=== PATIENT | female | born 1960 | race Two or more races ===

== ENCOUNTER 2024-12-12 14:20 | Inpatient (IN) | payer BC, SELFPAY ==
[2024-12-12] VITALS (9 sets, daily range): BP systolic 110–159; BP diastolic 71–98; PULSE 74–146; RESP 15–19; TEMP 36.1–36.9; O2SAT 95–100; BMI 27.5
--- NOTE | 2024-12-12 14:42 | EKG_ITS ---
[facility] Test Date: 2024-12-12 Pat Name: BRITTANI SMALLS Department: Room: - Gender: Female Practice Director: : [id number] Requested By: Keon Douglas Order Number: [id number] Reading MD: Keon Douglas Measurements Intervals [place] Rate: 119 P: IA: QRS: 11 QRSD: 76 T: 63 QT: 283 QTc: 398 Interpretive Statements ATRIAL FIBRILLATION WITH RAPID VENTRICULAR RESPONSE NONSPECIFIC T-WAVE ABNORMALITY ABNORMAL RHYTHM ECG No previous ECG available for comparison /store/S0/[id number].pdf
--- NOTE | 2024-12-12 14:48 | PC.LAC ---
Patient to er via ems from 's office with c/o syncopal episodes x 2 at home, feeling weak, upper mid chest pain and afib rvr at dr's office, no h/o afib, patient denies chest pain at this time, however, patient states he comes and goes. Skin is warm dry and slightly pale, patient states she feels slightly dizzy at this time and has h/o anemia. Dr. Alvarado made aware of patients status, ekg in progress by SORAYA Newman, call light within reach.
--- NOTE | 2024-12-12 15:19 | XR_ITS ---
Examination: AP chest single view TECHNIQUE: Portable AP sitting chest single view Date and time: December 12, 2024 1537 hours INDICATIONS: Chest pain beginning 3:00 AM this morning FINDINGS: Normal heart size. Lungs are clear. Osseous structures are intact IMPRESSION: No active disease
[2024-12-12 15:40] LABS: Basophils % (Auto) 1 % (0-2.5); Eosinophils % (Auto) 0 % (0-10); Hematocrit 33.4 % (36.0-46.0); Hemoglobin 10.7 g/dL (12.0-16.0); Immature Granulocytes % (Auto) 1 % (0-0); Immature Granulocytes Auto 0.03 Thou/mm3 (0.00-0.00); Lymphocytes # (Auto) 1.1 Thou/mm3 (1.0-4.8); Lymphocytes % (Auto) 16 % (10-50); Mean Corpuscular Hemoglobin 24.3 pg (25.0-35.0); Mean Corpuscular Volume 76 fL (80-100); Monocytes # (Auto) 0.6 Thou/mm3 (0.0-0.8); Monocytes % (Auto) 9 % (0-12); Neutrophils # (Auto) 4.8 Thou/mm3 (1.8-7.7); Neutrophils % (Auto) 73 % (37-80); Nucleated Red Blood Cell % 0 /100 WBC (0); Platelet Count 283 Thou/mm3 (140-440); RDW Standard Deviation 45.9 fL (36.4-46.3); Red Blood Count 4.41 Miln/mm3 (4.00-5.20); White Blood Count 6.6 Thou/mm3 (3.6-11.0)
[2024-12-12 16:02] LABS: Alanine Aminotransferase 19 U/L (10-49); Albumin, Serum 4.2 gm/dL (3.4-4.8); Albumin/Globulin Ratio 1.6 (1.2-2.2); Alkaline Phosphatase 104 U/L (46-116); Anion Gap 11 (7-16); BUN/Creatinine Ratio 18 Ratio (12-20); Bilirubin,Total 0.6 mg/dL (0.3-1.2); Blood Urea Nitrogen 18 mg/dL (9-23); Calcium 9.4 mg/dL (8.3-10.6); Calcium (Corrected) 9.4 mg/dL (8.5-10.1); Carbon Dioxide 21.7 mMol/L (20.0-31.0); Chloride 111 mMol/L (98-107); Estimated Creatinine Clearance 48.1 mL/min (>60); Globulin 2.7 gm/dL (2.3-3.5); Glucose 119 mg/dL (74-106); Osmolality,Calculated 289 (275-295); Potassium 3.8 mMol/L (3.4-5.1); Sodium 144 mMol/L (136-145); Thyroid Stimulating Hormone 1.51 uIU/mL (0.55-4.78); Total Protein 6.9 gm/dL (5.7-8.2); Troponin I < 0.020 ng/mL (0.0-0.045); eGFR > 60 See Note
[2024-12-12] MEDS: ENOXAPARIN SOD INJ 60 MG/0.6 ML SYRINGE SC (16:35)
[2024-12-12] MEDS: DILTIAZEM INJ 5 MG/ML VIAL 5 ML 20 MG IV ×2 (16:35→21:37)
--- NOTE | 2024-12-12 17:12 | PD.EDCHEST ---
ED Chest Pain RME/HPI General Chief Complaint: Chest Pain Stated Complaint: CHEST PAIN Time Seen by Provider: 12/12/24 14:42 Arrival date/time: 12/12/24 14:20 Limitations: no limitations RME / HPI RME / HPI narrative: 64 year old female with a history of anemia requiring previous blood transfusions and a prior procedure for menorrhagia 20 years ago presents to the ED BIBA for evaluation of chest pain and a heart fluttering sensation that began intermittently one week ago. The patient reports that previous episodes of fluttering and chest discomfort were short and resolved on their own. However, today she was awakened at 3 AM with fluttering sensation and chest pain. While getting ready for work this morning, she notes that the chest pain became unrelenting, associated with shortness of breath, prompting ED visit. The patient denies any known cardiac history, including prior heart disease or arrhythmias. Denies fever, chills, cough, abdominal pain, nausea, vomiting, diarrhea, or urinary symptoms. Also denies consuming coffee in the last three days and reports no use of recreational drugs. Related Data Previous Rx's ?Medication ?Instructions ?Recorded diphenhydramine HCl 50 mg capsule 50 mg PO Q6H PRN itching #30 caps 01/05/21 famotidine 40 mg tablet (Pepcid) 40 mg PO BID #7 tabs 01/05/21 Allergies Allergy/AdvReac Type Severity Reaction Status Date / Time No Known Allergies Allergy Verified 01/05/21 19:12 Review of Systems Review of Systems Systems Reviewed: All systems reviewed, normal except as documented Past Medical History Past Medical History CARDIAC: Positive Hypertension; Negative Congestive Heart Failure RESPIRATORY: Negative Chronic Obstructive Pulmonary Disease (COPD) GENITOURINARY: Negative Renal Disease ENDOCRINE: Negative Diabetes Mellitus Type 1 or Diabetes Mellitus Type 2 OTHER HISTORY: Positive Blood Transfusions Surgical History SURGICAL: Positive Gastric Bypass Surgery and Section (x2) Social History SMOKING STATUS: Never smoker ED Exam General Limitations: Present no limitations General appearance: Present alert and in no apparent distress Head Head exam: Present atraumatic, normocephalic and normal inspection Eye Eye exam: Present normal appearance, PERRL and EOMI ENT ENT exam: Present normal exam, normal oropharynx and mucous membranes moist Neck Neck exam: Present normal inspection, full ROM and trachea midline Chest Chest inspection: Present normal inspection and symmetric chest wall rise Respiratory Respiratory exam: Present normal lung sounds bilaterally Cardiovascular Cardiovascular exam: Present irregular rhythm (irregularly irregular) and normal heart sounds Abdominal Exam Abdominal exam: Present soft and normal bowel sounds Extremities Exam Extremities exam: Present normal inspection and full ROM Back Exam Back exam: Present normal inspection and full ROM Neurological Exam Neurological exam: Present alert, oriented X3 and CN II-XII intact Psychiatric Psychiatric exam: Present normal affect and normal mood Skin Skin exam: Present warm, dry, intact and normal color Course Quality Measures none Orders Category Date Time Status COVID-19 Screening Questionnaire NOW Care 12/12/24 17:33 Active Compressor Mechanic Q2HR Care 12/12/24 14:41 Completed Continuous Pulse Oximetry ONCE Care 12/12/24 15:19 Completed Decision to Admit X1 Care 12/12/24 17:33 Completed EKG (ED ONLY) *Do not use* NOW Care 12/12/24 14:42 Completed Insert IV STAT Care 12/12/24 15:19 Completed Miscellaneous Nursing Order PRN Care 12/12/24 16:37 Active EKG (ED Only) Stat Exams 12/12/24 14:42 Draft XR chest 1V portable Stat Exams 12/12/24 15:19 Completed B-Type Natriuretic Peptide Stat Lab 12/12/24 15:00 Received CBC [CBC] Stat Lab 12/12/24 15:00 Completed CMP [Comprehensive Metabolic Panel] Stat Lab 12/12/24 15:00 Completed Partial Thromboplastin Time Stat Lab 12/12/24 16:48 Received Prothrombin Time with INR Stat Lab 12/12/24 16:48 Received Thyroid Stimulating Hormone Stat Lab 12/12/24 15:00 Completed Troponin I Stat Lab 12/12/24 15:00 Completed DILTIAZEM in D5W 125 MG Med 12/12/24 16:18 Discontinued 125 mg in 125 ml IV 5 mg/hr DILTIAZEM in D5W 125 MG Med 12/12/24 16:37 Active 125 mg in 125 ml IV 5 mg/hr Diltiazem Inj [Cardizem Inj] Med 12/12/24 15:20 Discontinued 20 mg IV X1 ONE Enoxaparin [Lovenox] Med 12/12/24 15:20 Discontinued 60 mg SC X1 ONE Oxygen Delivery NOW RT 12/12/24 15:19 Active Vital Signs Vital signs: Vital Signs Temperature 98.4 F 12/12/24 14:39 Pulse Rate 146 H 12/12/24 14:39 Respiratory Rate 15 12/12/24 14:39 Blood Pressure 127/78 12/12/24 14:39 Pulse Oximetry (%) 100 12/12/24 14:39 Oxygen Delivery Method Room Air 12/12/24 14:39 Pulse ox is 100% on room air which is adequate. Chest Pain MDM Narrative MDM Narrative:: Martha Herring am scribing for and in the presence of Dr. Alvarado. 1636: RN reports patients HR after 20mg IVP of Diltiazem, HR is 64-77 atrial fibrillation on telemetry. 1720: Patient HR 70's atrial fibrillation on telemetry. Patient data External records reviewed:: [facility] previous records (I reviewed ED visit on 01/05/2021 ) and EMS form Clinical information provided by:: patient and EMS Social determinants that could affect healthcare access:: none Patient has the following chronic illnesses:: Hx of anemia requiring blood transfusion How is presenting disease/condition affected by chronic disease/condition?: uneffected by Evaluation data The following diagnostics were reviewed and interpreted by me:: lab results, radiology exam(s) and EKG tracing(s) (EKG 12/12/2024 @ 14:46. Atrial fibrillation with RVR, rate 119, nonspecific T-wave changes, QRS 76ms, QT/QTc 283/353ms ) Lab and/or radiology exams considered but not ordered:: None Interpretation Summary: Ordering Physician: Keon Alvarado MD Date of Service: 12/12/24 Procedure(s): XR chest 1V portable Accession Number(s): [id number] cc: Keon Alvarado MD; Nehemias Salazar MD; Atul Quinones MD~ Examination: AP chest single view TECHNIQUE: Portable AP sitting chest single view Date and time: December 12, 2024 1537 hours INDICATIONS: Chest pain beginning 3:00 AM this morning FINDINGS: Normal heart size. Lungs are clear. Osseous structures are intact IMPRESSION: No active disease Dictated By: Atul Quinones MD Signed By: <Electronically signed by Atul Quinones MD in OV> 12/12/24 1601 Medications / Prescriptions Medications or Prescriptions considered but not ordered:: None Medication administrations:: Medication Administration History Diltiazem HCl (Diltiazem In D5w 125 Mg) 125 mg in 125 mls @ 5 mls/hr IV .Q24H NORM Stop: 01/11/25 16:36 Discontinued Medications Diltiazem HCl (Diltiazem Inj 5 Mg/Ml Vial 5 Ml) 20 mg IV X1 ONE Stop: 12/12/24 15:21 Last Admin: 12/12/24 16:35 Dose: 20 mg Documented By: ALLYSSA Enoxaparin Sodium (Enoxaparin Sod Inj 60 Mg/0.6 Ml Syringe) 60 mg SC X1 ONE Stop: 12/12/24 15:21 Last Admin: 12/12/24 16:35 Dose: 60 mg Documented By: KM Diltiazem HCl (Diltiazem In D5w 125 Mg) 125 mg in 125 mls @ 5 mls/hr IV .Q24H [facility]; Protocol Stop: 01/11/25 16:17 Last Admin: 12/12/24 16:39 Dose: Not Given Documented By: ALLYSSA Non-Admin Reason: Cancelled by Provider See above Consultations Consultation(s) initiated? (list below): Yes Consultation #1 (Physician, Specialty, Details): I spoke with residents working with Dr. Salcido. Discussed patients PMHx, HPI, ED course, exam findings, labs, and radiology results. The hospitalist agree to accept the patient for admission. Time: 17:25 Diagnosis Chest Pain Differential Diagnosis: atypical chest pain, st elevation myocardial infarction, costochondritis, chest pain and other (Atrial fibrillation ) Most likely diagnosis given after review of the tests above:: New onset AFib Admission Indicated Admission indicated?: indicated Admission Request Was there a request for admission?: Yes Admission Attestation Admission request attestation: Discussed case with [] from Hospitalist service regarding admission. Discussed patients ED course, exam findings, labs, and radiology results. The Hospitalist [agrees,declines] to accept the patient for admission. Disposition Plan Disposition Plan: Admit Critical Care Time Critical Care Time Critical Care Time: Yes Total Critical Care Time (min.): 60 Attestation: The high probability of sudden, clinically significant deterioration in the patient's condition required the highest level of my preparedness to intervene urgently. The services I provided to this patient were to treat and/or prevent clinically significant deterioration. Services included the following: chart data review, reviewing nursing notes and/or old charts, documentation time, computer systems consultant collaboration regarding findings and treatment options, medication orders and management, direct patient care, vital sign assessments and ordering, interpreting and reviewing diagnostic studies and lab tests. Aggregate critical care time includes only time during which I was engaged in work directly related to the patient's care, as described above, whether at bedside or elsewhere in the Emergency Department. It did not include time spent performing other reported procedures or the services of residents, students, nurses or physician assistants. Discharge Plan Plan Patient Disposition: Admit Acute Care w/in Hospital Prescriptions/Referrals Prescriptions/Med Rec: No Action diphenhydramine HCl 50 mg capsule 50 mg PO Q6H PRN (Reason: itching) Qty: 30 0RF famotidine [Pepcid] 40 mg tablet 40 mg PO BID Qty: 7 0RF Referrals: Nehemias Salazar MD [Primary Care Provider] - In 1 week Problem List Clinical Impression: Atrial fibrillation, new onset Patient/Caregiver Discharge Instructions Print Language: Swedish Stand Alone Forms: [employer] Info., Patient Portal Info Letter
--- NOTE | 2024-12-12 17:56 | PC.NURSE ---
Hospitalists at bedside evaluating patient for admission.
[2024-12-12 18:24] LABS: B-Type Natriuretic Peptide 299 pg/mL (0-100)
[2024-12-12 18:29] LABS: Partial Thromboplastin Time < 20.0 Seconds (22.0-36.0); Prothrombin Time 11.3 Seconds (9.0-12.2)
--- NOTE | 2024-12-12 18:33 | ESHP_ITS ---
<Statement entered by Shama Ellis MD - 12/12/24 21:47> The patient is a 64-year-old female with a medical history of hypertension and type 2 diabetes who presented with atypical chest pain. On presentation, her heart rate was found to be in the 140s, and an EKG revealed A-fib. Troponin first set was negative. The patient continued to report chest discomfort, night monitor was showing Afib , prompting the initiation of a diltiazem drip after receiving bolus doses. Anticoagulation therapy was also started. She was admitted for the management of new-onset paroxysmal A-fib and unstable angina. The plan is to initiate diltiazem 120 mg daily for rate control, in addition to a therapeutic dose of Lovenox. Given her [id number] score of 3, switching to Eliquis will be considered. Cardiology has been consulted and will provide further recommendations. Electrolytes will be closely monitored to remain within the acceptable range, and risk factors such as hypertension and hyperglycemia will be managed appropriately. A second set of troponin levels will be obtained, and cardiology will continue to follow the case. The patient will likely require a coronary angiogram, as she has been experiencing exertional chest pain for the past two months, which resolves with rest. However, she has not been using nitroglycerin for relief. For now, the current management will continue, with follow-up to assess further results. I discussed with and supervised the architecture intern physician who took care of this patient. I personally saw and examined the patient and discussed the assessment and plan with the entire medicine team, including my attending , I agree with the assessment and plan as documented below Shama Ellis M.D. PGY-2 Disclaimer: Despite multiple revisions, due to the dictation software being used, the document bellow may not be free of grammatical errors including phonetic/typographic errors. However, this does not deter from our commitment to providing health care in the patient's best interest in mind. Documentation for date of: 12/12/24 HPI History of Present Illness History of present illness: Charmaine Cintron is a 64-year-old female with a past medical history of hypertension and type 2 diabetes mellitus (A1c 7.2% in 2020) who presents with chief complaint of chest pressure. Patient states that symptoms started approximately one week ago as substernal chest pressure that would resolve on their own and did not think anything of it until symptoms progressed. States that symptoms would start suddenly with associated shortness of breath, pressure in her head and blurry vision. Symptoms not associated with activity, did not radiate, and no nausea or vomiting. This morning, pain was more intense than prior and states that she had to lie down in bed and afterwards she states she lost consciousness twice prompting her to visit a clinic for which she was then recommended to come to the ED. Prior to one week ago, she has never had these symptoms before but did endorse a sore throat two weeks ago but no cough, fever, or chills. Regarding family history, states that she has two sisters who were recently diagnosed with atrial fibrillation and father had an CA in his 70s and has since . Denies orthopnea, PND, or lower extremity edema. Of note, she states she takes a total of 12 ibuprofen daily for the last 15 years for what she states as fatigue. Denies bloody bowel movements or abdominal pain. In the ED, initial HR noted to be 146 and EKG showed a-fib with RVR, with HR of [address] changes or T wave abnormalities noted. Other vital signs stable. CBC unremarkable other than previously noted microcytic anemia (hgb 10.7, MCV 76). Chem panel also largely unremarkable (K 3.8, trop negative, BNP 300). EKG was noted above and CXR unremarkable. She was given enoxaparin x1 and diltiazem 20 mg x1 as well and heart rate upon evaluation was in the 80s. PMHx: hypertension, T2DM Medications: lisinopril 10 mg daily, ibuprofen 200 mg x12 per day FHx: as noted above SHx: denies cigarettes, alcohol, illitic drug use PSHx: two C-sections Review of Systems Review of Systems Systems Reviewed: All systems reviewed, normal except as documented Exam Vital Signs Temp Pulse Resp BP Pulse Ox O2 Del Method 98.4 F 83 18 110/71 100 Room Air 12/12/24 14:39 12/12/24 18:01 12/12/24 18:01 12/12/24 18:01 12/12/24 18:01 12/12/24 18:01 Narrative Exam General: AOx3, no acute distress, able to speak full sentences HEENT: NC/AT, mucous membranes moist, bilateral sclera anicteric Cardiovascular: regular rate and rhythm, S1/S2 present, no murmurs appreciated Pulmonary: clear to auscultation bilaterally, no rales/rhonchi/wheezes Abdominal: soft, non-tender, non-distended, no rebound/guarding, normal bowel sounds present Musculoskeletal: normal ROM, no peripheral edema Skin: warm and dry, intact, no rashes Neuro: CN II-XII intact, no focal deficits Results: Labs 12/13/24 05:52 12/13/24 05:52 Labs: Short CBC 12/12/24 Range/Units 15:00 WBC 6.6 (3.6-11.0) Thou/mm3 Hgb 10.7 L (12.0-16.0) g/dL Hct 33.4 L (36.0-46.0) % Plt Count 283 (140-440) Thou/mm3 BMP 12/12/24 15:00 Sodium 144 Potassium 3.8 Chloride 111 H Carbon Dioxide 21.7 BUN 18 Creatinine 1.0 Glucose 119 H Calcium 9.4 Cardiac Enzymes 12/12/24 Range/Units 15:00 Troponin I < 0.020 (0.0-0.045) ng/mL Liver Function 12/12/24 Range/Units 15:00 Total Bilirubin 0.6 (0.3-1.2) mg/dL ALT 19 (10-49) U/L Alkaline Phosphatase 104 (46-116) U/L Albumin 4.2 (3.4-4.8) gm/dL Quality Measures Quality Measures none Medications Home Medications and Allergies Home Medications ?Medication ?Instructions ?Recorded ?Confirmed ?Type lisinopril 10 mg tablet 10 mg PO DAILY 12/12/2412/03 History ibuprofen 200 mg capsule 400 mg PO Q4H PRN pain 12/1312/13/24 History Allergies Allergy/AdvReac Type Severity Reaction Status Date / Time No Known Allergies Allergy Verified 01/05/21 19:12 Visit Medications Acetaminophen (Acetaminophen 325 Mg Tablet) 650 mg PO Q6H PRN PRN Reason: PAIN OR FEVER > 100.4 Stop: 01/11/25 18:19 Dextrose (Dextrose 50%-Water Inj 50 Ml Syringe) 25 ml IV Q15MIN PRN PRN Reason: BG 50-70 responsive npo pt Stop: 01/11/25 18:22 Dextrose (Dextrose 50%-Water Inj 50 Ml Syringe) 50 ml IV Q15MIN PRN PRN Reason: BG <50 OR BG <70 & pt unresponsive Stop: 01/11/25 18:22 Diltiazem HCl (Diltiazem Cd 120 Mg Capcr) 120 mg PO QDAY NORM Stop: 01/12/25 08:59 Enoxaparin Sodium (Enoxaparin Sod Inj 100 Mg/Ml Syringe) 64 mg SC BID NORM Stop: 12/26/24 20:59 Glucagon (Glucagon Inj 1 Mg Vial) 1 mg IM Q15MIN PRN PRN Reason: BG <70, and no IV access Diltiazem HCl (Diltiazem In D5w 125 Mg) 125 mg in 125 mls @ 5 mls/hr IV .Q24H NORM Stop: 01/11/25 16:36 Insulin Human Lispro (Insulin Lispro (Admelog) 1 Unit/0.01 Ml Unit) 0 unit SC AC [facility]; Protocol Stop: 01/12/25 07:29 Lisinopril (Lisinopril 2.5 Mg Tablet) 10 mg PO DAILY [facility] Stop: 01/12/25 08:59 Ondansetron HCl (Ondansetron Inj 2 Mg/Ml Inj 2 Ml) 4 mg IVP Q6H PRN; Protocol PRN Reason: NAUSEA OR VOMITING Stop: 01/11/25 18:19 Discontinued Medications Diltiazem HCl (Diltiazem Inj 5 Mg/Ml Vial 5 Ml) 20 mg IV X1 ONE Stop: 12/12/24 15:21 Last Admin: 12/12/24 16:35 Dose: 20 mg Enoxaparin Sodium (Enoxaparin Sod Inj 60 Mg/0.6 Ml Syringe) 60 mg SC X1 ONE Stop: 12/12/24 15:21 Last Admin: 12/12/24 16:35 Dose: 60 mg Enoxaparin Sodium (Enoxaparin Sod Inj 100 Mg/Ml Syringe) 63 mg SC BID [facility] Stop: 12/26/24 20:59 Diltiazem HCl (Diltiazem In D5w 125 Mg) 125 mg in 125 mls @ 5 mls/hr IV .Q24H [facility]; Protocol Stop: 01/11/25 16:17 Last Admin: 12/12/24 16:39 Dose: Not Given Assessment & Plan Plan Charmaine Cintron is a 64-year-old female with a past medical history of hypertension and type 2 diabetes mellitus who is admitted for management of new onset atrial fibrillation. #New onset atrial fibrillation #Syncopal episode Presents with chest pressure with associated shortness of breath and syncopal episode. Pressure did not radiate, was not associated with activity, and no N/V. Found to be in a-fib with RVR, initial troponins negative, and BNP slightly elevated at 300 but no orthopnea, PND, or lower extremity edema. Initial vitals showed HR 146 but hemodynamically stable and no supplemental oxygen required. TSH wnl, K 3.8, magnesium pending. EKG showed a-fib with RVR with HR 119. ? Cardiology following, appreciate recommendations ? Diltiazem 120 mg p.o. daily ? Enoxaparin 64 mg SC twice daily, will eventually transition to Eliquis ? Follow-up Mg ? Keep magnesium greater than 2 and K greater than 4 ? Follow-up echo #Hypertension ? Lisinopril 10 mg daily #History of type 2 diabetes mellitus Currently not on any medications or insulin. Last A1c in 2019 of 7.2% ? Follow-up A1c ? SSI ? Hypoglycemic protocol in place Hospital management: Disposition: new onset a-fib RVR, pending echo, cardio recs Fluids: not indicated Diet: carb consistent Lines: PIV DVT prophylaxis: enoxaparin BID GI prophylaxis: not indicated CODE STATUS: full code ----- Plan discussed with attending physician Dr. Loly Baxter MD PGY-1 Internal Medicine Attending Provider Attestation/Addendum I have examined the patient, reviewed labs and imaging findings, discussed the case with the resident(s), and reviewed entered orders. I agree with the plan of care as outlined in this note, with these additional summaries/recommendations: After examination of the patient and review of the clinical data, I feel that this patient needs admission to the hospital for further treatment and evaluation. Patient is a 64-year-old female with a medical history of acid reflux, primary hypertension, diabetes mellitus type 2, and dyslipidemia who presents to [facility] emergency department on 12/12/2024 with chief complaints of chest pain and shortness of breath. Patient seen at bedside. She reports minor improvement in shortness of breath and chest pain since arriving in the emergency department. In the ED patient was found to have new onset atrial fibrillation with rapid ventricular response. EKG showed rates into the 140s. She denies a previous history of arrhythmias and denies seeing a breeding manager in the past. Patient diagnosed with new onset atrial fibrillation with RVR. She received IV push of diltiazem 20 mg x 1 and therapeutic dose of Lovenox 60 mg subcutaneous x 1. Heart rate has significantly improved. Will start patient on oral diltiazem and continue therapeutic Lovenox. Order echocardiogram. Cardiology consulted, recommendations appreciated. Start insulin sliding scale with Accu-Cheks for diabetes mellitus type 2. Order A1c. Target blood sugar of 140-180 while hospitalized. Resume home lisinopril for hypertension. Patient and updated at bedside. All questions answered to satisfaction. Please see residents note for additional details and management. Dr. Loly MD
--- NOTE | 2024-12-12 20:17 | PC.NURSE ---
Report called to Mya LIRA
[2024-12-12 20:41] LABS: Glucose Estimated Average 114 mg/dL (80-131); Hemoglobin A1C 5.6 % Hgb (4.8-6.0); Magnesium 2.1 mg/dL (1.6-2.6)
[2024-12-12] MEDS: POTASSIUM CHLORIDE 20 mEq TABCR 40 MEQ PO (21:03)
--- NOTE | 2024-12-12 21:03 | ESCONSULT_ITS ---
HPI Data of Consult Requesting Physician: Genaro Salcido MD Admitting Provider: Genaro Salcido MD Attending Provider: Genaro Salcido MD Primary Care Provider: Nehemias Salazar MD Consult Narrative History of present illness: CC: chest pain & chest pressure Patient is a 64-year-old female with a past medical history of hypertension and microcytic anemia previously on iron supplements but since discontinued secondary to constipation. Patient presented to the emergency department via ambulance with a chief complaint of chest pain rapid heart rate coming from Dr Salazar's office. Patient stated that chest pain has been on and off for the past 2 weeks worsened with exertion. Describes chest pain as starting at sternal region and radiating. Denied upper jaw or hand radiation. Patient stated pain is 10 out of 10 overnight. Chest pain awoke patient out of sleep at approximately 3 AM patient described pain as aching and also heavy. Shortness of breath with chest pain/pressure. Patient denied palpitations. Patient denied nausea or vomiting. In PCPs office noted to be clammy and confused. Patient denied past medical history of cardiac surgery. Patient denied any sick contacts. Denied pyrexia. Drug use. Patient is compliant with PERRL. Patient admitted by primary team for Atrial fibrillation w/ RVR on 12/12/2024. ER Course: Vitals: BP 127/78, HR 146, RR 15, T 98.4, spO2 100 RA CMP: Na 144, K 3.8, Chloride 111, Bicarb 21.7, BUN 18, Cr 1.0 Glucose 119 WBC 6.6, Hgb 10.7, Hct 33.4, Plt 283, MCV 72 BNP 299, TSH 1.51 EKG: Afib Meds: Diltiazem 20 mg IV X 1, Enoxaparin 60 mg SC X 1 PMH: Hypertension Previous History of Diabetes Mellitus, lost 100 pounds after bypass; has then gained weight, now -50 lbs down since June 2024 after going on diet . Past Surgical History: Gastric Bypass 2000 2 C-sections Past Family History: Father-previous history of GA Mother-DM Home Medication: Lisinopril Social History: Denied Alcohol Use Denied Illicit Drug Use Never Smoker Works at [employer] and multiple jobs lives in [place] with Allergies: None 12/12/2024: Cardiology Consulted secondary to new onset of AFib cc:: cc: Genaro Salcido MD Review of Systems Review of Systems Narrative Review of Systems: General appearance: NO weight change, NO fatigue, NO weakness, NO fever, NO chills, NO night sweats, No cough Skin: NO rash, NO itching, NO sores, NO moles HEENT: NO Trauma, NO nausea, NO vomiting, NO visual changes, NO blurry vision, NO double vision, NO tinnitus, NO vertigo, NO ear discharge, NO rhinorrhea, NO stuffiness, NO sneezing, NO allergy, NO epistaxis. NO Hoarseness, NO sore throat, NO swollen neck. Cardiac: NO Palpitations, Yes CHEST pain, Yes Chest Pressue , YES dyspnea on exertion, NO orthopnea, NO paroxysmal nocturnal dyspnea, NO edema Respiratory: NO Shortness of Breath, NO Wheezing, NO Cough, NO Sputum, NO hemoptysis GI:NO appetite, NO nausea, NO vomiting, NO dysphagia, NO changes in bowel frequency, NO stool color, NO diarrhea, NO constipation, NO hemetemesis, NO hemorrhoids, NO melena, NO hematechezia, NO abdominal pain, NO jaundice Renal: NO frequency, NO hesitancy, NO urgency, NO hematuria, NO nocturia, NO incontinence MSK: NO muscle weakness, NO gout, NO arthritis, NO muscle stiffness Neuro: NO headaches, NO tremors, NO weakness, NO paralysis, NO seizures, NO loss of consciousness, NO numbness. Hem: NO anemia, NO easy bruising/bleeding, NO petechiae, NO purpura Endo: NO heat/cold intolerance, NO excessive sweating, NO polyuria, NO polydipsia, NO polyphagia, NO thyroid problems, Previously Pre-diabetes Pysch: NO mood, NO anxiety, NO depression Exam Vital Signs Temp Pulse Resp BP Pulse Ox O2 Del Method 98.2 F 82 18 118/83 97 Room Air 12/12/24 19:33 12/12/24 19:33 12/12/24 19:33 12/12/24 19:33 12/12/24 19:33 12/12/24 19:33 Narrative Exam General Appearance: Alert & Oriented X3, well-nourished female who is lying in bed in no acute distress HEENT: Skull symmetrical and atraumatic. Conjunctivae pale and moist. Pupils equal, round, reactive to light and accommodation (PERRL). External ear without lesion or discharge. Straight, nares patient, mucosa pink, no discharge. No thyroid nodule appreciated. No cervical lymphadenopathy. Cardio: Normal Rate and Irregular Rhythm with S1 and S2 heart sounds. No murmurs or extra heart sounds auscultated. No bruits on carotid auscultation. No peripheral edema or cyanosis. Lungs: Symmetric with good expansion. Chest and back non-tender. Breath sounds vesicular without crackles, wheezing or rhonchi Abdomen: Non-tender, Non-distended, Normal Reactive Bowel Sounds Neuro: Alert, cooperative, oriented to person, place, and time. Speech clear. CN grossly intact. Upper motor strength 5/5 and Lower motor strength 5/5. Sensation intact. Results Labs 12/13/24 05:52 12/13/24 05:52 Labs: Short CBC 12/12/24 Range/Units 15:00 WBC 6.6 (3.6-11.0) Thou/mm3 Hgb 10.7 L (12.0-16.0) g/dL Hct 33.4 L (36.0-46.0) % Plt Count 283 (140-440) Thou/mm3 BMP 12/12/24 15:00 Sodium 144 Potassium 3.8 Chloride 111 H Carbon Dioxide 21.7 BUN 18 Creatinine 1.0 Glucose 119 H Calcium 9.4 Cardiac Enzymes 12/12/24 Range/Units 15:00 Troponin I < 0.020 (0.0-0.045) ng/mL Liver Function 12/12/24 Range/Units 15:00 Total Bilirubin 0.6 (0.3-1.2) mg/dL ALT 19 (10-49) U/L Alkaline Phosphatase 104 (46-116) U/L Albumin 4.2 (3.4-4.8) gm/dL Quality Measures Quality Measures none Medications Home Medications and Allergies Home Medications ?Medication ?Instructions ?Recorded ?Confirmed ?Type lisinopril 10 mg tablet 10 mg PO DAILY 12/12/2412/03 History ibuprofen 200 mg capsule 400 mg PO Q4H PRN pain 12/1312/13/24 History Allergies Allergy/AdvReac Type Severity Reaction Status Date / Time No Known Allergies Allergy Verified 01/05/21 19:12 Visit Medications Acetaminophen (Acetaminophen 325 Mg Tablet) 650 mg PO Q6H PRN PRN Reason: PAIN 1-3 OR FEVER > 100.4 Stop: 01/11/25 18:19 Dextrose (Dextrose 50%-Water Inj 50 Ml Syringe) 25 ml IV Q15MIN PRN PRN Reason: BG 50-70 responsive npo pt Stop: 01/11/25 18:22 Dextrose (Dextrose 50%-Water Inj 50 Ml Syringe) 50 ml IV Q15MIN PRN PRN Reason: BG <50 OR BG <70 & pt unresponsive Stop: 01/11/25 18:22 Diltiazem HCl (Diltiazem Cd 120 Mg Capcr) 120 mg PO QDAY NORM Stop: 01/12/25 08:59 Enoxaparin Sodium (Enoxaparin Sod Inj 80 Mg/0.8 Ml Syringe) 64 mg SC BID [facility] Stop: 12/26/24 20:59 Last Admin: 12/12/24 21:00 Dose: Not Given Glucagon (Glucagon Inj 1 Mg Vial) 1 mg IM Q15MIN PRN PRN Reason: BG <70, and no IV access Insulin Human Lispro (Insulin Lispro (Admelog) 1 Unit/0.01 Ml Unit) 0 unit SC AC [facility]; Protocol Stop: 01/12/25 07:29 Lisinopril (Lisinopril 2.5 Mg Tablet) 10 mg PO DAILY [facility] Stop: 01/12/25 08:59 Ondansetron HCl (Ondansetron Inj 2 Mg/Ml Inj 2 Ml) 4 mg IVP Q6H PRN; Protocol PRN Reason: NAUSEA OR VOMITING Stop: 01/11/25 18:19 Discontinued Medications Diltiazem HCl (Diltiazem Inj 5 Mg/Ml Vial 5 Ml) 20 mg IV X1 ONE Stop: 12/12/24 15:21 Last Admin: 12/12/24 16:35 Dose: 20 mg Enoxaparin Sodium (Enoxaparin Sod Inj 60 Mg/0.6 Ml Syringe) 60 mg SC X1 ONE Stop: 12/12/24 15:21 Last Admin: 12/12/24 16:35 Dose: 60 mg Enoxaparin Sodium (Enoxaparin Sod Inj 100 Mg/Ml Syringe) 63 mg SC BID [facility] Stop: 12/26/24 20:59 Diltiazem HCl (Diltiazem In D5w 125 Mg) 125 mg in 125 mls @ 5 mls/hr IV .Q24H NORM; Protocol Stop: 01/11/25 16:17 Last Admin: 12/12/24 16:39 Dose: Not Given Diltiazem HCl (Diltiazem In D5w 125 Mg) 125 mg in 125 mls @ 5 mls/hr IV .Q24H [facility] Stop: 01/11/25 16:36 Potassium Chloride (Potassium Chloride 20 Meq Tabcr) 40 meq PO X1 ONE Stop: 12/12/24 20:29 Assessment & Plan Plan Patient is a 64-year-old female with a past medical history of hypertension and microcytic anemia who was admitted on 12/12/2024 for new onset of Atrial Fibrillation w/ rvr. Cardiology consulted for Atrial Fibrillation. #Atrial Fibrillation, RVR #new onset of Atrial Fibrillation #Chest Pain New onset of atrial fibrillation, given chronic history of anemia, microcytic anemia can not be ruled as trigger vs Given chest pain that awoke patient in the middle of the night, can not rule out ACS, repeat troponin and repeat EKG vs less likely secondary to PE as patient's vitals within normal limits. EKG: A fib, Troponin <0.02, Repeat at 9 PM TSH 1.51 BNP 299 CHADsVASC 1 HAS BLED 1 Plan -Repeat Troponin given chest pain -Repeat EKG in AM -Lipid Panel -Diltiazem 120 mg PO qday, Consider transition to Metoprolol XL 25 mg PO qday -Keep K>4 and Mg >2 -Echo pending #Microcytic Anemia Past medical history of anemia shortly after gastric bypass in 2000. Patient previously started on iron supplements, but discontinued given constipation side effects. Plan -consider repeat iron panel -Iron supplements w/ Senna, and Vitamin C -Encourage increase iron intake -Consider Window Draper Consult #Hypertension Holding home medication of Lisinopril. Plan -Lisinopril on hold by primary team given normal BP #History of Diabetes Mellitus Type 2 Given past medical history of diabetes mellitus type 2, repeat A1c ordered. Denied polydyspia or polyuria. Patient has had significant weight loss secondary to gastric bypass, exercise, and briefly being on Wegovy. Diagnostic: A1c 5.6 Plan -Sliding Scale -Continue to monitor fasting glucose -consider D/C slidng scale Health Maintenance: Disp: Pt is currently admitted to floors for further management of A.fib, awaiting echo, cardiology consulted. FEN: cardiac diet DVT: Lovenox Code: Full - The patient's plan was discussed with attending Dr. Sonya Vera MD PGY1 Internal Medicine Attending Provider Attestation/Addendum I have personally seen and examined the patient separately on the above date of service and discussed the plan of care with the resident. I reviewed the resident Dr. Caro Vera excellent consultation progress note and agree with the resident findings and plan in the note above and have also edited the documentation to reflect my findings and plan. A 64-year-old female with a past medical history of essential hypertension, morbid obesity status post gastric bypass in 2000, prediabetes, anemia on iron replacements, recent weight loss of more than 50 pounds over the last year and used Ozempic intermittently, significant family history of heart disease for father presented to the emergency department for further evaluation of chest tightness as well as heart racing. Patient apparently woke up in the morning around 3 AM as she could not feels chest pain or chest pressure along with some racing of the heart and patient tried to go back to sleep again but woke up again around 5 AM and continued to have chest discomfort and hence went to the PCP Dr Salazar's office for further evaluation. Patient was found to be in A-fib with RVR and was sent to the emergency department for further evaluation. Initial heart rate was around 146/min and rest of the vitals were normal. Labs showed potassium of 3.8. Magnesium was not done. Kidney function normal hemoglobin mildly low at 10.7 TSH was normal BNP slightly elevated to 99. EKG did confirm atrial fibrillation with RVR. Patient was given diltiazem 20 mg x 1 and then started on diltiazem 120 mg CD. Assessment and plan: 1. New onset atrial fibrillation with RVR 2. Chest pain or chest pressure 3. Essential hypertension 4. Prediabetes versus DM 5. Obesity status post gastric bypass 6. Chronic anemia on iron supplements Presented initially with A-fib with RVR now controlled with diltiazem CD1 20 mg once daily. Will changed to metoprolol XL 50 mg once daily and monitor with patient's heart rate on telemetry. [place] potassium greater than 4 and magnesium greater than 2.0. Echocardiogram ordered to evaluate LV function RV function, diastolic function and also to evaluate chamber sizes. VPA1LY6-FTYy score is only 1 for now from the hypertension recommend to check A1c and if your A1c is elevated then patient we will need possible anticoagulation. Aspirin 81 mg once daily for now. Rate control for now and if patient does not convert to same sinus rhythm then eventually patient will need KAROLINA with cardioversion but that will require anticoagulation. Unclear trigger for the atrial fibrillation at the present point of time. Regarding her chest pain patient chest pain was mostly associated with the A-fib with RVR and once the A-fib with RVR has been well-controlled patient does not have any further chest pain. Also troponins were negative and EKG also did not show any acute ST-T changes suggestive of ischemia. If patient continues to any further chest pain after the rate control then will pursue further workup as inpatient otherwise patient will need to continue workup as outpatient as she does have some risk factors including her age hypertension, history of prediabetes, family history of heart disease with father having GA in his 60s and at the age of 72 Check echocardiogram. Repeat second troponin troponin as well as EKG BNP slightly elevated at 229 but no evidence of any volume overload and will continue to monitor for now. Blood pressure well-controlled and recommend to continue to hold lisinopril for now as we will need the blood pressure room for the heart rate control. Start metoprolol and continue to uptitrate it based on the heart rate response. Check A1c TSH and lipid profile for further cardiac restratification. Management of anemia and workup as per primary team. Marvin Hassan M.D. Interventional Cardiology
[2024-12-12 23:35] LABS: Troponin I 0.022 ng/mL (0.0-0.045)
[2024-12-13] VITALS (22 sets, daily range): BP systolic 107–156; BP diastolic 51–109; PULSE 75–113; RESP 16–96; TEMP 36.1–36.9; O2SAT 92–100; BMI 28.5
[2024-12-13 06:30] LABS: Basophils # (Auto) 0.1 Thou/mm3 (0.0-0.2); Basophils % (Auto) 1 % (0-2.5); Eosinophils # (Auto) 0.1 Thou/mm3 (0.0-0.5); Eosinophils % (Auto) 2 % (0-10); Hematocrit 30.6 % (36.0-46.0); Hemoglobin 9.9 g/dL (12.0-16.0); Immature Granulocytes % (Auto) 0 % (0-0); Immature Granulocytes Auto 0.01 Thou/mm3 (0.00-0.00); Lymphocytes # (Auto) 1.2 Thou/mm3 (1.0-4.8); Lymphocytes % (Auto) 23 % (10-50); Mean Corpuscular HGB Conc 32.4 g/dl (31.0-37.0); Mean Corpuscular Hemoglobin 24.5 pg (25.0-35.0); Mean Corpuscular Volume 76 fL (80-100); Monocytes # (Auto) 0.4 Thou/mm3 (0.0-0.8); Monocytes % (Auto) 8 % (0-12); Neutrophils # (Auto) 3.5 Thou/mm3 (1.8-7.7); Neutrophils % (Auto) 66 % (37-80); Nucleated Red Blood Cell % 0 /100 WBC (0); Platelet Count 235 Thou/mm3 (140-440); RDW Standard Deviation 46.6 fL (36.4-46.3); Red Blood Count 4.04 Miln/mm3 (4.00-5.20); White Blood Count 5.3 Thou/mm3 (3.6-11.0)
[2024-12-13 06:43] LABS: Anion Gap 12 (7-16); BUN/Creatinine Ratio 25 Ratio (12-20); Blood Urea Nitrogen 20 mg/dL (9-23); Calcium 8.6 mg/dL (8.3-10.6); Carbon Dioxide 23.2 mMol/L (20.0-31.0); Cardiac Risk Estimate 3.5 RATIO (3.7-5.6); Chloride 112 mMol/L (98-107); Cholesterol 163 mg/dL (132-200); Creatinine (Component) 0.8 mg/dL (0.6-1.3); Estimated Creatinine Clearance 61.2 mL/min (>60); Glucose 98 mg/dL (74-106); HDL Cholesterol 47 mg/dL (40-60); LDL Cholesterol,Calculated 99 mg/dL (0-130); Magnesium 2.1 mg/dL (1.6-2.6); Osmolality,Calculated 295 (275-295); Partial Thromboplastin Time 23.6 Seconds (22.0-36.0); Phosphorous 3.7 mg/dL (2.4-5.1); Potassium 3.8 mMol/L (3.4-5.1); Prothrombin Time 11.3 Seconds (9.0-12.2); Sodium 147 mMol/L (136-145); Triglycerides 85 mg/dL (30-150); eGFR > 60 See Note
--- NOTE | 2024-12-13 07:00 | EKG_ITS ---
[facility] Test Date: 2024-12-13 Pat Name: BRITTANI SMALLS [facility] Gender[facility] Health Nurse: ECOBN1 : 1960 Requested By: Caro Vera Order Number: [id number] Reading MD: Caro Vera Measurements Intervals [place] Rate: 82 P: MA: QRS: 13 QRSD: 75 T: 64 QT: 330 QTc: 387 Interpretive Statements ATRIAL FIBRILLATION ABNORMAL RHYTHM ECG Compared to ECG 12/12/2024 14:46:34 T-wave abnormality no longer present /store/S0/[id number].pdf
[2024-12-13] MEDS: METOPROLOL SUCCINATE XL 25 MG TABCR 50 MG PO ×3 (08:53→22:27)
[2024-12-13] MEDS: POTASSIUM CHLORIDE 20 mEq TABCR 40 MEQ PO (08:54)
[2024-12-13] MEDS: ENOXAPARIN SOD INJ 80 MG/0.8 ML SYRINGE 64 MG SC (08:57)
[2024-12-13] MEDS: ASPIRIN EC 81 MG TABEC PO (09:02)
--- NOTE | 2024-12-13 09:24 | PC.SS ---
64YO female, reason for visit: NEW ONSET AFIB SS met with patient at bedside. Patient confirmed her demographic information. Patient stated her primary medical surrogate decisionmaker is her daughter, Alison Jones [phone]. Patient reported she is independent with ADL completion and ambulation as well. Pharmacy: [facility] [place]. PCP: Dr. Salazar, last appt. was 12/12/24. Next of kin: Daughter Alison Jones [phone] Discharge plan: Home, family to transport.
--- NOTE | 2024-12-13 09:37 | PD.RESPRO ---
Documentation for date of: 12/13/24 Subjective Subjective Interval history: CC: chest pain & chest pressure Patient is a 64-year-old female with a past medical history of hypertension and microcytic anemia previously on iron supplements but since discontinued secondary to constipation. Patient presented to the emergency department via ambulance with a chief complaint of chest pain rapid heart rate coming from Dr Salazar's office. Patient stated that chest pain has been on and off for the past 2 weeks worsened with exertion. Describes chest pain as starting at sternal region and radiating. Denied upper jaw or hand radiation. Patient stated pain is 10 out of 10 overnight. Chest pain awoke patient out of sleep at approximately 3 AM patient described pain as aching and also heavy. Shortness of breath with chest pain/pressure. Patient denied palpitations. Patient denied nausea or vomiting. In PCPs office noted to be clammy and confused. Patient denied past medical history of cardiac surgery. Patient denied any sick contacts. Denied pyrexia. Drug use. Patient is compliant with PERRL. Patient admitted by primary team for Atrial fibrillation w/ RVR on 12/12/2024. 12/13/2024: Parasright, patient A.fib w/ rvr required push of Diltiazem 20 mg IV Push. Patient remains in Afib with rvr. Patient continues to complain of chest pain, 7/10 overnight. Given concern for ACS, Aspirin add, NPO, schedule Cath. Transition patient to Metoprolol Succinate 100 mg Qday. D/C Lisinopril, continue to monitor BP if need be re-introduce. Exam Vital Signs Temp Pulse Resp BP Pulse Ox O2 Del Method 97.0 F 76 19 125/86 H 99 Room Air 12/13/24 08:00 12/13/24 08:53 12/13/24 08:00 12/13/24 08:53 12/13/24 08:00 12/13/24 08:00 Narrative Exam General Appearance: Alert & Oriented X3, well-nourished female who is lying in bed in no acute distress HEENT: Skull symmetrical and atraumatic. Conjunctivae pale and moist. Pupils equal, round, reactive to light and accommodation (PERRL). External ear without lesion or discharge. Straight, nares patient, mucosa pink, no discharge. No thyroid nodule appreciated. No cervical lymphadenopathy. Cardio: Normal Rate and Irregular Rhythm with S1 and S2 heart sounds. No murmurs or extra heart sounds auscultated. No bruits on carotid auscultation. No peripheral edema or cyanosis. Lungs: Symmetric with good expansion. Chest and back non-tender. Breath sounds vesicular without crackles, wheezing or rhonchi Abdomen: Non-tender, Non-distended, Normal Reactive Bowel Sounds Neuro: Alert, cooperative, oriented to person, place, and time. Speech clear. CN grossly intact. Upper motor strength 5/5 and Lower motor strength 5/5. Sensation intact. Objective Labs 12/13/24 05:52 12/13/24 05:52 Labs: Laboratory Results - last 24 hr 12/12/24 12/12/24 12/12/24 15:00 16:48 23:07 WBC 6.6 RBC 4.41 Hgb 10.7 L Hct 33.4 L MCV 76 L MCH 24.3 L MCHC 32.0 RDW Std Deviation 45.9 Plt Count 283 Neut % (Auto) 73 Lymph % (Auto) 16 Wilkes % (Auto) 9 Eos % (Auto) 0 Baso % (Auto) 1 Neut # (Auto) 4.8 Lymph # (Auto) 1.1 Wilkes # (Auto) 0.6 Eos # (Auto) 0.0 Baso # (Auto) 0.0 Immature Gran # (Auto) 0.03 H Absolute Nucleated RBC 0.00 Immature Gran % 1 H Nucleated RBC % 0 PT 11.3 INR 1.0 APTT < 20.0 L Sodium 144 Potassium 3.8 Chloride 111 H Carbon Dioxide 21.7 Anion Gap 11 BUN 18 Creatinine 1.0 Estim Creat Clear Calc 48.1 L eGFR > 60 BUN/Creatinine Ratio [address] Glu mg/dL 114 Hemoglobin A1c 5.6 Calculated Osmolality 289 Calcium 9.4 Corrected Calcium 9.4 Phosphorus Magnesium 2.1 Total Bilirubin 0.6 ALT 19 Alkaline Phosphatase 104 Troponin I < 0.020 0.022 B-Natriuretic Peptide 299 H Total Protein 6.9 Albumin 4.2 Globulin 2.7 Albumin/Globulin Ratio 1.6 Triglycerides Cholesterol LDL Cholesterol, Calc HDL Cholesterol Cholesterol/HDL Ratio TSH 1.51 12/13/24 05:52 WBC 5.3 RBC 4.04 Hgb 9.9 L Hct 30.6 L MCV 76 L MCH 24.5 L MCHC 32.4 RDW Std Deviation 46.6 H Plt Count 235 D Neut % (Auto) 66 Lymph % (Auto) 23 Wilkes % (Auto) 8 Eos % (Auto) 2 Baso % (Auto) 1 Neut # (Auto) 3.5 Lymph # (Auto) 1.2 Wilkes # (Auto) 0.4 Eos # (Auto) 0.1 Baso # (Auto) 0.1 Immature Gran # (Auto) 0.01 H Absolute Nucleated RBC 0.00 Immature Gran % 0 Nucleated RBC % 0 PT 11.3 INR 1.0 APTT 23.6 Sodium 147 H Potassium 3.8 Chloride 112 H Carbon Dioxide 23.2 Anion Gap 12 BUN 20 Creatinine 0.8 Estim Creat Clear Calc 61.2 eGFR > 60 BUN/Creatinine Ratio [address] Glucose [address] Glu mg/dL Hemoglobin A1c Calculated Osmolality 295 Calcium 8.6 Corrected Calcium Phosphorus 3.7 Magnesium 2.1 Total Bilirubin ALT Alkaline Phosphatase Troponin I B-Natriuretic Peptide Total Protein Albumin Globulin Albumin/Globulin Ratio Triglycerides 85 Cholesterol 163 LDL Cholesterol, Calc 99 HDL Cholesterol 47 Cholesterol/HDL Ratio 3.5 L TSH Quality Measures Quality Measures none Assessment & Plan Assessment Current Active Medications: Generic Name Dose Route Start Last Admin Trade Name Freq PRN Reason Stop Dose Admin Acetaminophen 650 mg 12/12/24 18:20 Acetaminophen 325 Mg Tablet PO 01/11/25 18:19 Q6H PRN PAIN 1-3 OR FEVER > 100.4 Aspirin 81 mg 12/13/24 09:00 12/13/24 09:02 Aspirin Ec 81 Mg Tabec PO 01/12/25 08:59 81 mg QDAY NORM Administration Atorvastatin Calcium 40 mg 12/13/24 21:00 Atorvastatin Calcium 20 Mg Tablet PO 01/12/25 20:59 HS NORM Dextrose 25 ml 12/12/24 18:23 Dextrose 50%-Water Inj 50 Ml Syringe IV 01/11/25 18:22 Q15MIN PRN BG 50-70 responsive npo pt Dextrose 50 ml 12/12/24 18:23 Dextrose 50%-Water Inj 50 Ml Syringe IV 01/11/25 18:22 Q15MIN PRN BG <50 OR BG <70 & pt unresponsive Enoxaparin Sodium 64 mg 12/12/24 21:00 12/13/24 08:57 Enoxaparin Sod Inj 80 Mg/0.8 Ml Syringe SC 12/26/24 20:59 64 mg BID NORM Administration Glucagon 1 mg 12/12/24 18:23 Glucagon Inj 1 Mg Vial IM Q15MIN PRN BG <70, and no IV access Insulin Human Lispro 0 unit 12/13/24 07:30 Insulin Lispro (Admelog) 1 Unit/0.01 Ml Unit SC 01/12/25 07:29 AC NORM Protocol Metoprolol Succinate 50 mg 12/13/24 09:00 12/13/24 08:53 Metoprolol Succinate Xl 25 Mg Tabcr PO 01/12/25 08:59 50 mg QDAY NORM Administration Ondansetron HCl 4 mg 12/12/24 18:20 Ondansetron Inj 2 Mg/Ml Inj 2 Ml IVP 01/11/25 18:19 Q6H PRN NAUSEA OR VOMITING Protocol Plan Patient is a 64-year-old female with a past medical history of hypertension and microcytic anemia who was admitted on 12/12/2024 for new onset of Atrial Fibrillation w/ rvr. Cardiology consulted for Atrial Fibrillation. #Atrial Fibrillation, RVR #new onset of Atrial Fibrillation #Chest Pain New onset of atrial fibrillation, given chronic history of anemia, microcytic anemia can not be ruled as trigger vs Given chest pain that awoke patient in the middle of the night, can not rule out ACS, repeat troponin and repeat EKG vs less likely secondary to PE as patient's vitals within normal limits. 12/13/2024: Given persistent chest pain that continued overnight. Patient made NPO. Aspirin added. Scheduled Cath with possible PCI. Metoprolol 100 mg qday and Eliquis 5 mg BID. Echo read pending. EKG: A fib, Troponin <0.02, Troponin (repeat): 0.02 TSH 1.51 BNP 299 CHADsVASC 2 HAS BLED 1 ASCVD Risk: 5.4% risk of cardiovascular event in the next 10 years; moderate intensity Plan -Metoprolol Succinate 100 mg Qday -Eliquis 5 mg BID -Aspirin 325 mg X 1, Aspirin 81 mg Qday -Atorvastatin 40 mg HS -Keep K>4 and Mg >2 -Repeat EKG not take AM, telebox Afib -Echo pending #Microcytic Anemia Past medical history of anemia shortly after gastric bypass in 2000. Patient previously started on iron supplements, but discontinued given constipation side effects. Plan -consider repeat iron panel -Iron supplements w/ Senna, and Vitamin C -Encourage increase iron intake -Consider Director Of Bands Consult #Hypertension Holding home medication of Lisinopril. Plan -Lisinopril on hold by primary team given normal BP #History of Diabetes Mellitus Type 2 Given past medical history of diabetes mellitus type 2, repeat A1c ordered. Denied polydyspia or polyuria. Patient has had significant weight loss secondary to gastric bypass, exercise, and briefly being on Wegovy. Diagnostic: A1c 5.6 Plan -Sliding Scale -Continue to monitor fasting glucose -consider D/C slidng scale Health Maintenance: Disp: Pt is currently admitted to floors for further management of A.fib, awaiting echo, cardiology consulted. FEN: cardiac diet DVT: Eliquis 5 mg BID Code: Full - The patient's plan was discussed with attending Dr. Sonya Vera MD PGY1 Internal Medicine Attending Provider Attestation/Addendum I have personally seen and examined the patient separately on the above date of service and discussed the plan of care with the resident. I reviewed the resident Dr. Caro Vera consultation progress note and agree with the resident findings and plan in the note above and have also edited the documentation to reflect my findings and plan. Marvin Hassan M.D. Interventional Cardiology
--- NOTE | 2024-12-13 09:50 | ESPR_ITS ---
<Statement entered by Shama Ellis MD - 12/13/24 13:07> Patient seen and examined at bedside. No acute overnight Patient overnight had a episode of A-fib with heart rate above 120, diltiazem 20 push was given. Cardio evaluated the patient, recommended to continue with metoprolol succinate 50 XL, and uptitrate as needed. Per cardiology rate control for now and if patient does not improve eventually patient will need a KAROLINA with cardioversion. For now continue current management and monitor how patient responds to mediaction Labs revealed A1c is 5.6, BP is under control, Pending PT evaluation. I personally saw and examined the patient and discussed the assessment and plan with the entire medicine team, including my attending Dr. Salcido, Shama Ellis M.D. PGY-2 Disclaimer: Despite multiple revisions, due to the dictation software being used, the document bellow may not be free of grammatical errors including phonetic/typographic errors. However, this does not deter from our commitment to providing health care in the patient's best interest in mind. Documentation for date of: 12/13/24 Subjective Subjective Interval history: No acute overnight events, though patient heart rate did reach to 120s at around 9 PM and was given another dose of diltiazem 20 mg x 1 and heart rate returned back to 80s. Seen and examined at bedside and patient endorses improvement in her symptoms, though states she has experienced some chest discomfort associated with palpitations here in the hospital. Per cardiology recommendations, started on metoprolol succinate 50 mg daily, aspirin 81 mg daily, and atorvastatin 40 mg daily. Patient will also go to record label intern today for further evaluation of chest discomfort. Exam Vital Signs Temp Pulse Resp BP Pulse Ox O2 Del Method 97.0 F 76 19 125/86 H 99 Room Air 12/13/24 08:00 12/13/24 08:53 12/13/24 08:00 12/13/24 08:53 12/13/24 08:00 12/13/24 08:00 Narrative Exam General: AOx3, no acute distress, able to speak full sentences HEENT: NC/AT, mucous membranes moist, bilateral sclera anicteric Cardiovascular: regular rate and rhythm, S1/S2 present, no murmurs appreciated Pulmonary: clear to auscultation bilaterally, no rales/rhonchi/wheezes Abdominal: soft, non-tender, non-distended, no rebound/guarding, normal bowel sounds present Musculoskeletal: normal ROM, no peripheral edema Skin: warm and dry, intact, no rashes Neuro: CN II-XII intact, no focal deficits Objective Labs 12/14/24 05:10 12/14/24 05:10 Labs: Laboratory Results - last 24 hr 12/12/24 12/12/24 12/12/24 15:00 16:48 23:07 WBC 6.6 RBC 4.41 Hgb 10.7 L Hct 33.4 L MCV 76 L MCH 24.3 L MCHC 32.0 RDW Std Deviation 45.9 Plt Count 283 Neut % (Auto) 73 Lymph % (Auto) 16 [facility] % (Auto) 9 Eos % (Auto) 0 Baso % (Auto) 1 Neut # (Auto) 4.8 Lymph # (Auto) 1.1 [facility] # (Auto) 0.6 Eos # (Auto) 0.0 Baso # (Auto) 0.0 Immature Gran # (Auto) 0.03 H Absolute Nucleated RBC 0.00 Immature Gran % 1 H Nucleated RBC % 0 PT 11.3 INR 1.0 APTT < 20.0 L Sodium 144 Potassium 3.8 Chloride 111 H Carbon Dioxide 21.7 Anion Gap 11 BUN 18 Creatinine 1.0 Estim Creat Clear Calc 48.1 L eGFR > 60 BUN/Creatinine Ratio [address] Glu mg/dL 114 Hemoglobin A1c 5.6 Calculated Osmolality 289 Calcium 9.4 Corrected Calcium 9.4 Phosphorus Magnesium 2.1 Total Bilirubin 0.6 ALT 19 Alkaline Phosphatase 104 Troponin I < 0.020 0.022 B-Natriuretic Peptide 299 H Total Protein 6.9 Albumin 4.2 Globulin 2.7 Albumin/Globulin Ratio 1.6 Triglycerides Cholesterol LDL Cholesterol, Calc HDL Cholesterol Cholesterol/HDL Ratio TSH 1.51 12/13/24 05:52 WBC 5.3 RBC 4.04 Hgb 9.9 L Hct 30.6 L MCV 76 L MCH 24.5 L MCHC 32.4 RDW Std Deviation 46.6 H Plt Count 235 D Neut % (Auto) 66 Lymph % (Auto) 23 [facility] % (Auto) 8 Eos % (Auto) 2 Baso % (Auto) 1 Neut # (Auto) 3.5 Lymph # (Auto) 1.2 [facility] # (Auto) 0.4 Eos # (Auto) 0.1 Baso # (Auto) 0.1 Immature Gran # (Auto) 0.01 H Absolute Nucleated RBC 0.00 Immature Gran % 0 Nucleated RBC % 0 PT 11.3 INR 1.0 APTT 23.6 Sodium 147 H Potassium 3.8 Chloride 112 H Carbon Dioxide 23.2 Anion Gap 12 BUN 20 Creatinine 0.8 Estim Creat Clear Calc 61.2 eGFR > 60 BUN/Creatinine Ratio 25 H Glucose [address] Glu mg/dL Hemoglobin A1c Calculated Osmolality 295 Calcium 8.6 Corrected Calcium Phosphorus 3.7 Magnesium 2.1 Total Bilirubin ALT Alkaline Phosphatase Troponin I B-Natriuretic Peptide Total Protein Albumin Globulin Albumin/Globulin Ratio Triglycerides 85 Cholesterol 163 LDL Cholesterol, Calc 99 HDL Cholesterol 47 Cholesterol/HDL Ratio 3.5 L TSH Quality Measures Quality Measures none Assessment & Plan Assessment Current Active Medications: Generic Name Dose Route Start Last Admin Trade Name Freq PRN Reason Stop Dose Admin Acetaminophen 650 mg 12/12/24 18:20 Acetaminophen 325 Mg Tablet PO 01/11/25 18:19 Q6H PRN PAIN 1-3 OR FEVER > 100.4 Aspirin 81 mg 12/13/24 09:00 12/13/24 09:02 Aspirin Ec 81 Mg Tabec PO 01/12/25 08:59 81 mg QDAY NORM Administration Atorvastatin Calcium 40 mg 12/13/24 21:00 Atorvastatin Calcium 20 Mg Tablet PO 01/12/25 20:59 HS NORM Dextrose 25 ml 12/12/24 18:23 Dextrose 50%-Water Inj 50 Ml Syringe IV 01/11/25 18:22 Q15MIN PRN BG 50-70 responsive npo pt Dextrose 50 ml 12/12/24 18:23 Dextrose 50%-Water Inj 50 Ml Syringe IV 01/11/25 18:22 Q15MIN PRN BG <50 OR BG <70 & pt unresponsive Enoxaparin Sodium 64 mg 12/12/24 21:00 12/13/24 08:57 Enoxaparin Sod Inj 80 Mg/0.8 Ml Syringe SC 12/26/24 20:59 64 mg BID NORM Administration Glucagon 1 mg 12/12/24 18:23 Glucagon Inj 1 Mg Vial IM Q15MIN PRN BG <70, and no IV access Insulin Human Lispro 0 unit 12/13/24 07:30 Insulin Lispro (Admelog) 1 Unit/0.01 Ml Unit SC 01/12/25 07:29 AC NORM Protocol Metoprolol Succinate 50 mg 12/13/24 09:00 12/13/24 08:53 Metoprolol Succinate Xl 25 Mg Tabcr PO 01/12/25 08:59 50 mg QDAY NORM Administration Ondansetron HCl 4 mg 12/12/24 18:20 Ondansetron Inj 2 Mg/Ml Inj 2 Ml IVP 01/11/25 18:19 Q6H PRN NAUSEA OR VOMITING Protocol Plan Charmaine Cintron is a 64-year-old female with a past medical history of hypertension and type 2 diabetes mellitus who is admitted for management of new onset atrial fibrillation. #New onset atrial fibrillation #Syncopal episode Presents with chest pressure with associated shortness of breath and syncopal episode. Pressure did not radiate, was not associated with activity, and no N/V. Found to be in a-fib with RVR, initial troponins negative, and BNP slightly elevated at 300 but no orthopnea, PND, or lower extremity edema. Initial vitals showed HR 146 but hemodynamically stable and no supplemental oxygen required. TSH wnl, K 3.8, magnesium pending. EKG showed a-fib with RVR with HR 119. ? Cardiology following, appreciate recommendations ? Metoprolol succinate XL 50 mg daily ? Atorvastatin 40 mg daily ? Aspirin 81 mg daily ? Enoxaparin 64 mg SC twice daily, will eventually transition to Eliquis ? Keep magnesium greater than 2 and K greater than 4 ? Follow-up echo #Hypertension ? Home lisinopril 10 mg -> HELD #History of type 2 diabetes mellitus Currently not on any medications or insulin. Last A1c in 2019 of 7.2%. A1c on this admission 5.6%. ? SSI ? Hypoglycemic protocol in place Hospital management: Disposition: new onset a-fib RVR, pending echo, cardio recs -> record label intern Fluids: not indicated Diet: NPO for cardiac cath Lines: PIV DVT prophylaxis: enoxaparin BID GI prophylaxis: not indicated CODE STATUS: full code ----- Plan discussed with attending physician Dr. Loly Baxter MD PGY-1 Internal Medicine Attending Provider Attestation/Addendum I have examined the patient, reviewed labs and imaging findings, discussed the case with the resident(s), and reviewed entered orders. I agree with the plan of care as outlined in this note, with these additional summaries/recommendations: Patient is a 64-year-old female with a medical history of acid reflux, primary hypertension, diabetes mellitus type 2, and dyslipidemia who presents to [facility] emergency department on 12/12/2024 with chief complaints of chest pain and shortness of breath. Patient seen at bedside. Overnight patient had 1 episode of atrial fibrillation with rapid ventricular response with a rate into the 120s. Today trending between 70s and 80s. Cardiology following and patient transitioned to metoprolol. [id number] score is 3 points and continue therapeutic Lovenox. Unclear trigger for atrial fibrillation at this point. Echocardiogram pending. Continue home lisinopril for primary hypertension. Continue insulin sliding scale for history of diabetes mellitus which is not well-controlled. Patient updated on the plan and in agreement. Continue to monitor on telemetry. Please see residents note for additional details and management. Dr. Loly MD
--- NOTE | 2024-12-13 10:53 | PC.PT ---
Attempt to initiate PT evaluation at 1000. As per patient, she already ambulated to the restroom and back. This is confirmed by RN. Will cancel PT evaluation. Patient is at her PLOF.
--- NOTE | 2024-12-13 11:51 | PC.SS ---
Rounding note: Tachy, AFIB. Cardiology is following patient. Patient to discharge home when medically clear.
[2024-12-13] MEDS: Aspirin 325 MG TABLET PO (14:23)
[2024-12-13] MEDS: SODIUM CHLORIDE 0.45 % 500 ML 150 ML IV (16:00)
--- NOTE | 2024-12-13 18:00 | PC.NURSE ---
TR band removed at this time. Surgical site asymptomatic, no active bleeding, no hematoma noted on right upper extremity or around the surgical site. Capillary refill < 3 seconds. No noted changes in color or temperature on right upper extremity. Patient denies general and localized pain, no loss in sensation, no tingling or numbness felt to right upper extremity. Tagaderm and Coban wrap applied. Will continue to monitor
--- NOTE | 2024-12-13 18:11 | PC.NURSE ---
SURGICAL SITE TO RIGHT GROIN AREA REMAINS ASYMPTOMATIC, NO ACTIVE BLEEDING, NO HEMATOMA NOTED ON RIGHT GROIN AREA. RIGHT FEMORAL PULSE NOTED WITH NO CHANGES IN STRENGHT AND QUALITY UPON PALPATION (), RIGHT DORSALIS PEDIS PULSE NOTED WITH NO CHANGES STRENGHT AND QUALITY (). DISTAL CAPPILARRY REFILL <3 SECONDS (Baseline, Right Toes). NO NOTED CHANGES IN COLOR OR TEMPERATURE ON RIGHT LOWER EXTREMITY. PATIENT DENIES GENERAL AND LOCALIZED PAIN. NO TINGLING OR NUMBNESS FELT TO RIGHT LOWER EXTREMITY. NO LOSS IN SENSATION TO RIGHT LOWER EXTEREMITY SURGICAL SITE COVERED WITH GAUZE AND TAGADERM DRESSING, WHICH REMAINS IN PLACE, DRY, AND INTACT.
--- NOTE | 2024-12-13 18:24 | ECHO_ITS ---
Transthoracic Echo Report Ht (in): 60 Wt (lb): 146 Exam Location: Echo Lab Status: Inpatient [employer] Processing Labourer: Gail Hagan Indications: Procedure Performed: BP: 124 / 90 HR: 78 Technical Quality: Adequate MEASUREMENTS (Male / Female) Normal Values 2D ECHO LV Diastolic Diameter PLAX 3.9 cm 4.2 - 5.9 / 3.9 - 5.3 cm LV Systolic Diameter PLAX 2.9 cm IVS Diastolic Thickness 1.0 cm 0.6 - 1.0 / 0.6 - 0.9 cm LVPW Diastolic Thickness 1.1 cm 0.6 - 1.0 / 0.6 - 0.9 cm LV Relative Wall Thickness 0.5 LVOT Diameter 1.8 cm LA Volume Index 38.7 cm?/m? 16 - 28 cm?/m? DOPPLER AV Peak Velocity 104.1 cm/s AV Peak Gradient 4.3 mmHg LVOT Peak Velocity 64.2 cm/s LVOT Peak Gradient 1.6 mmHg AV Area Cont Eq pk 1.6 cm? TR Peak Velocity 190.0 cm/s TR Peak Gradient 14.4 mmHg PV Peak Velocity 65.2 cm/s PV Peak Gradient 1.7 mmHg FINDINGS Left Ventricle Normal left ventricular size and systolic function with no obvious regional wall motion abnormalities. The ejection fraction is visually estimated at 55-60 %. Mild left ventricular hypertrophy. Right Ventricle The right ventricle is normal in size and systolic function. The estimated right ventricular systolic pressure, 14 mmHg. RAP 5mmHg. Left Atrium The left atrium is mildly dilated. Right Atrium The right atrium is moderately dilated. Atrial Septum The interatrial septum appears normal with no evidence of a shunt. Aorta The aorta is normal by two-dimensional, color flow and Doppler interrogation. Mitral Valve The mitral valve is normal by two-dimensional, color flow and Doppler interrogation. There is trace mitral regurgitation. Aortic Valve The aortic valve is trileaflet and normal by two-dimensional, color flow and Doppler interrogation. There is no significant aortic valve regurgitation. Tricuspid Valve The tricuspid valve is normal by two-dimensional, color flow and Doppler interrogation. There is trace tricuspid regurgitation. Pulmonic Valve The pulmonic valve is not well visualized. There is no significant pulmonic valve regurgitation. Vessels The pulmonary artery appears normal. The inferior vena cava pulmonary and hepatic veins appear normal. Pericardium The pericardium is normal by two-dimensional imaging. There is no significant pericardial effusion. CONCLUSIONS Indications: New Onset AFIB Normal LV size and function. Estimated EF 55-60%. Mild LVH. Normal RV size and function. Trace MR, TR. Mild biatrial dilatation. Normal IVC. No pericardial effusion. Marvin Hassan (Electronically Signed) Final Date: 13 December 2024 20:15
--- NOTE | 2024-12-13 18:25 | PC.NURSE ---
Surgical site remains asymptomatic (right wrist), no active bleeding, no hematoma noted on right upper extremity or around the surgical site. Capillary refill < 3 seconds. No noted changes in color or temperature on right upper extremity. Patient denies generalized and localized pain, no loss in sensation, no tingling or numbness felt to right upper extremity. Tagaderm and Coban wrap in place, clean, and dry. Will continue to monitor SURGICAL SITE TO RIGHT GROIN AREA REMAINS ASYMPTOMATIC, NO ACTIVE BLEEDING, NO HEMATOMA NOTED ON RIGHT GROIN AREA. RIGHT FEMORAL PULSE NOTED WITH NO CHANGES IN STRENGHT AND QUALITY UPON PALPATION (), RIGHT DORSALIS PEDIS PULSE NOTED WITH NO CHANGES STRENGHT AND QUALITY (). DISTAL CAPPILARRY REFILL <3 SECONDS (Baseline, Right Toes). NO NOTED CHANGES IN COLOR OR TEMPERATURE ON RIGHT LOWER EXTREMITY. PATIENT DENIES GENERAL AND LOCALIZED PAIN. NO TINGLING OR NUMBNESS FELT TO RIGHT LOWER EXTREMITY. NO LOSS IN SENSATION TO RIGHT LOWER EXTEREMITY SURGICAL SITE COVERED WITH GAUZE AND TAGADERM DRESSING, WHICH REMAINS IN PLACE, DRY, AND INTACT.
[2024-12-13] MEDS: ATORVASTATIN CALCIUM 20 MG TABLET 40 MG PO (20:37)
[2024-12-13] MEDS: APIXABAN 2.5 MG TABLET 5 MG PO (20:37)
--- NOTE | 2024-12-13 20:43 | ESOP_ITS ---
Cardiac Cath Procedure Procedure Name Date of procedure: 12/13/2024 TOWER EXCAVATOR OPERATOR: Marvin Hassan MD PROCEDURE PERFORMED: 1. Left heart and right heart cardiac catheterization including right, left coronary angiograms and left ventriculogram - CPT 97707 2. Ultrasound-guided access of the right radial artery and right femoral vein - CPT 22282 3. Conscious sedation for 30 minutes - CPT 10049 Procedure Narrative HISTORY AND INDICATIONS: A 64-year-old female with a past medical history of essential hypertension, morbid obesity status post gastric bypass in 2000, prediabetes, anemia on iron replacement, recent weight loss of more than 50 pounds over the last 1 year, used Ozempic intermittently, significant family history of heart disease per father presented to the emergency department for further evaluation of chest tightness as well as heart racing. Patient was diagnosed with A-fib with RVR. Heart rate was controlled with diltiazem IV and then oral diltiazem. Patient still continued to complain of chest pain chest pressure as well as shortness of breath overnight and was not able to sleep well. Hence left-handed cardiac disease involving recommended for the patient. Discussed with patient risks, benefits and alternatives of performing left with coronary angiogram including the risks of bleeding, heart rate, stroke and with the procedure. Patient understands the risks and is willing to undergo the procedure. Consent provided for the same. H&P updated and consent was signed prior to the procedure DESCRIPTION OF PROCEDURE: The patient was brought to the cardiac catheterization lab and all asceptic precautions were followed. Patient was given 1 Mg of Versed and 50 mcg of fentanyl for moderate conscious sedation. 2 mL of lidocaine was given in the right wrist. The right radial artery was accessed via the ultrasound guidance as well as micropuncture technique. A 6 Malaysian glide sheath was introduced. A 10 ml of lidocaine was then injected in the right femoral area and right fe moral vein vein was accessed with ultrasound guidance and micropuncture technique. A 7 chinese femoral sheath was used. A 7 Malaysian Lonepine-Alejandro catheter was used with a Lonepine wire to direct into the right atrium with inflated balloon. Serial measurements of right atrium, right ventricle, pulmonary artery and pulmonary capillary wedge were taken severely with normal respiration as well as at end expiration as noted below. We then used a 6 Malaysian TIG 4 catheter to perform the left and right coronary angiogram as well as a left ventriculogram which showed the following findings. LHC findings: 1. Left ventricular ejection fraction was normal at 60 to 65%. LVEDP was normal at 12 mmHg. There was no significant transvalvular aortic gradient. 2. Right dominant circulation left main artery is a large-caliber vessel without any significant stenosis. 3. LAD is a large sized artery with a medium size diagonal and does not show any significant disease. 4. LCx is a large sized artery with medium OM1 and small OM2 without any significant disease. 5. RCA is a large artery with nedium RPDA and RPL without any significant disease. RHC findings: Mean right atrial pressure was 2 mmHg. Right atrial pressure was 22/10 mmHg. A radial band was used to achieve the hemostasis of the right radial artery access and manual hemostasis for the right femoral vein. Patient will be monitored in the cardiac family service center director for the next 2 to 3 hours and will be sent to the telemetry floor. Patient recommended to follow-up with me in the office within 7 days after discharge. Complications: None Specimens: None Blood loss: Estimated 5 ml Summary/findings: 1. Normal coronaries without any angiographically significant obstruction and few luminal regular rate 30s. 2. Normal LVEF at 60 to 65% with normal LVEDP and no significant transvalvular aortic gradient. 3. Normal right heart pressures. Recommendations: 1. Recommend aggressive medical management of the atrial fibrillation and aggressive risk factor modification. 2. Patient recommended not to lift more than 5 lbs for the next 7-10 days and follow up with me in my office in 7 days. Marvin Hassan MD Interventional Cardiology.
[2024-12-13] MEDS: MORPHINE SULF INJ 10 MG/ML VIAL IVP (22:17)
[2024-12-13] MEDS: SODIUM CHLORIDE 0.9% 1000 ML 1,000 ML 100 ML IV (22:28)
[2024-12-14] VITALS (13 sets, daily range): BP systolic 97–151; BP diastolic 75–95; PULSE 72–105; RESP 10–19; TEMP 36.1–36.4; O2SAT 96–100; BMI 28.5
[2024-12-14 06:40] LABS: Anion Gap 9 (7-16); BUN/Creatinine Ratio 21 Ratio (12-20); Blood Urea Nitrogen 17 mg/dL (9-23); Calcium 8.3 mg/dL (8.3-10.6); Carbon Dioxide 24.8 mMol/L (20.0-31.0); Chloride 110 mMol/L (98-107); Creatinine (Component) 0.8 mg/dL (0.6-1.3); Estimated Creatinine Clearance 61.2 mL/min (>60); Glucose 82 mg/dL (74-106); Magnesium 1.9 mg/dL (1.6-2.6); Osmolality,Calculated 287 (275-295); Phosphorous 3.2 mg/dL (2.4-5.1); Potassium 4.3 mMol/L (3.4-5.1); Sodium 144 mMol/L (136-145); eGFR > 60 See Note
[2024-12-14 06:42] LABS: Prothrombin Time 11.2 Seconds (9.0-12.2)
[2024-12-14] MEDS: Magnesium Sulfate 2 GM Ivpb 2 GM/50 ML BAG IV (08:49)
[2024-12-14] MEDS: ASPIRIN EC 81 MG TABEC PO (08:49)
[2024-12-14] MEDS: METOPROLOL SUCCINATE XL 25 MG TABCR 100 MG PO (08:49)
[2024-12-14 09:02] LABS: Partial Thromboplastin Time 24.8 Seconds (22.0-36.0)
--- NOTE | 2024-12-14 10:31 | PD.RESDS ---
Planned Discharge Date 12/14/24 DS: Providers Provider Date of admission: 12/12/24 18:20 Primary care physician: Nehemias Salazar MD Admitting Provider: Genaro Salcido MD Attending Provider on Admission: Genaro Salcido MD Consults: 12/12/24 18:24 Consult to Cardiology Routine Comment: New onset a-fib Consulting Provider: Marvin Hassan Attending Provider on DC: Lonnie Baxter MD Discharging Provider: Lonnie Baxter MD Hospital Course Hospital Course Hospital course: CC: chest pain & chest pressure Patient is a 64-year-old female with a past medical history of hypertension and microcytic anemia previously on iron supplements but since discontinued secondary to constipation. Patient presented to the emergency department via ambulance with a chief complaint of chest pain rapid heart rate coming from Dr Salazar's office. Patient stated that chest pain has been on and off for the past 2 weeks worsened with exertion. Describes chest pain as starting at sternal region and radiating. Denied upper jaw or hand radiation. Patient stated pain is 10 out of 10 overnight. Chest pain awoke patient out of sleep at approximately 3 AM patient described pain as aching and also heavy. Shortness of breath with chest pain/pressure. Patient denied palpitations. Patient denied nausea or vomiting. In PCPs office noted to be clammy and confused. Patient denied past medical history of cardiac surgery. Patient denied any sick contacts. Denied pyrexia. Drug use. Patient is compliant with PERRL. Patient admitted by primary team for Atrial fibrillation w/ RVR on 12/12/2024. 12/13/2024: [employer], patient A.fib w/ rvr required push of Diltiazem 20 mg IV Push. Patient remains in Afib with rvr. Patient continues to complain of chest pain, 7/10 overnight. Given concern for ACS, Aspirin add, NPO, schedule Cath. Transition patient to Metoprolol Succinate 100 mg Qday. D/C Lisinopril, continue to monitor BP if need be re-introduce. Time Spent with Patient Time attestation: Total time spent providing and/or coordinating discharge services: Exam Vital Signs Temp Pulse Resp BP Pulse Ox O2 Del Method 97.1 F 77 17 131/87 H 98 Room Air 12/14/24 08:00 12/14/24 08:49 12/14/24 08:00 12/14/24 08:49 12/14/24 08:00 12/14/24 08:00 Discharge Plan Plan Patient Disposition: HOME (Self Care) Care Plan Goals: ? You've been started on: ? Eliquis 5 mg twice per day ? Atorvastatin 40 mg daily ? Metoprolol succinate 100 mg daily ? Follow-up with food [facility], Dr. Hassan, within 1-2 weeks of discharge ? Recommended not to lift more than 5 lbs for the next 7-10 days and follow up with me in my office in 7 days. ? Stop taking lisinopril and ibuprofen, at least until you follow-up with your PCP ? Follow-up with PCP within 1-2 weeks of discharge ? If you do not have a PCP, you can follow-up at the [facility] (you can call [phone] to make an appointment) ? If you wish to follow-up with Dr. Baxter, schedule appointment on Wednesday afternoons ? Return to ED if symptoms worsen or recur Prescriptions/Referrals Prescriptions/Med Rec: New Eliquis 5 mg tablet 5 mg PO BID 30 Days Qty: 60 0RF atorvastatin 40 mg tablet 40 mg PO HS 30 Days Qty: 30 0RF metoprolol succinate 25 mg Tablet Extended Release 24 Hr 100 mg PO QDAY 30 Days Qty: 120 0RF Discontinued lisinopril 10 mg tablet 10 mg PO DAILY ibuprofen 200 mg capsule 400 mg PO Q4H PRN (Reason: pain) Referrals: Nehemias Salazar MD [Primary Care Provider] - Patient/Caregiver Discharge Instructions Discharge Activity: activity as tolerated Education Materials: AFL/Afib Print Language: Yakut Stand Alone Forms: [employer] Award Info., Patient Portal Info Letter Discharge Order Discharge Orders: Discharge (Routine); Ordered 12/14/24 Ordered By: Lonnie Baxter
--- NOTE | 2024-12-14 11:10 | PC.NURSE ---
called Dr. Hernandez regarding discharge that was entered earlier,stated team will come to talk to pt. before discharge.
--- NOTE | 2024-12-14 12:53 | PC.SS ---
SS follow up note; Patient will discharge home today.
--- NOTE | 2024-12-14 13:27 | PD.RESPRO ---
Documentation for date of: 12/14/24 Subjective Subjective Interval history: No acute overnight events, though noted to have an episode of tachycardia for which metoprolol succinate 50 mg was given x 1. Seen and examined at bedside in a.m. and patient denied any shortness of breath, chest discomfort, or palpitations upon evaluation. Cardiology recommended to start metoprolol succinate 100 mg, Eliquis 5 mg twice daily, and atorvastatin for hyperlipidemia and was going to be discharged but patient developed episode of RVR and lightheadedness so decision was made to observe for another night. Will give an additional 50 mg metoprolol succinate. Exam Vital Signs Temp Pulse Resp BP Pulse Ox O2 Del Method 97.0 F 72 18 151/89 H 100 Room Air 12/14/24 12:00 12/14/24 12:00 12/14/24 12:00 12/14/24 12:00 12/14/24 12:00 12/14/24 12:00 Narrative Exam General: AOx3, no acute distress, able to speak full sentences HEENT: NC/AT, mucous membranes moist, bilateral sclera anicteric Cardiovascular: irregular rate, regular rhythm, S1/S2 present, no murmurs appreciated Pulmonary: clear to auscultation bilaterally, no rales/rhonchi/wheezes Abdominal: soft, non-tender, non-distended, no rebound/guarding, normal bowel sounds present Musculoskeletal: normal ROM, no peripheral edema Skin: warm and dry, intact, no rashes Neuro: CN II-XII intact, no focal deficits Objective Labs 12/15/24 05:08 12/15/24 05:08 Labs: Laboratory Results - last 24 hr 12/14/24 05:10 WBC Cancelled RBC Cancelled Hgb Cancelled Hct Cancelled MCV Cancelled MCH Cancelled MCHC Cancelled RDW Std Deviation Cancelled Plt Count Cancelled Neut % (Auto) Cancelled Lymph % (Auto) Cancelled [place] % (Auto) Cancelled Eos % (Auto) Cancelled Baso % (Auto) Cancelled Neut # (Auto) Cancelled Lymph # (Auto) Cancelled [place] # (Auto) Cancelled Eos # (Auto) Cancelled Baso # (Auto) Cancelled Immature Gran # (Auto) Cancelled Absolute Nucleated RBC Cancelled Immature Gran % Cancelled Nucleated RBC % Cancelled PT 11.2 INR 1.0 APTT 24.8 Sodium 144 Potassium 4.3 D Chloride 110 H Carbon Dioxide 24.8 Anion Gap 9 BUN 17 Creatinine 0.8 Estim Creat Clear Calc 61.2 eGFR > 60 BUN/Creatinine Ratio 21 H Glucose 82 Calculated Osmolality 287 Calcium 8.3 Phosphorus 3.2 Magnesium 1.9 Quality Measures Quality Measures none Assessment & Plan Assessment Current Active Medications: Generic Name Dose Route Start Last Admin Trade Name Freq PRN Reason Stop Dose Admin Acetaminophen 650 mg 12/12/24 18:20 Acetaminophen 325 Mg Tablet PO 01/11/25 18:19 Q6H PRN PAIN 1-3 OR FEVER > 100.4 Aspirin 81 mg 12/13/24 09:00 12/14/24 08:49 Aspirin Ec 81 Mg Tabec PO 01/12/25 08:59 81 mg QDAY NORM Administration Atorvastatin Calcium 40 mg 12/13/24 21:00 12/13/24 20:37 Atorvastatin Calcium 20 Mg Tablet PO 01/12/25 20:59 40 mg HS NORM Administration Dextrose 25 ml 12/12/24 18:23 Dextrose 50%-Water Inj 50 Ml Syringe IV 01/11/25 18:22 Q15MIN PRN BG 50-70 responsive npo pt Dextrose 50 ml 12/12/24 18:23 Dextrose 50%-Water Inj 50 Ml Syringe IV 01/11/25 18:22 Q15MIN PRN BG <50 OR BG <70 & pt unresponsive Glucagon 1 mg 12/12/24 18:23 Glucagon Inj 1 Mg Vial IM Q15MIN PRN BG <70, and no IV access Insulin Human Lispro 0 unit 12/13/24 07:30 12/14/24 12:08 Insulin Lispro (Admelog) 1 Unit/0.01 Ml Unit SC 01/12/25 07:29 Not Given AC NORM Protocol Metoprolol Succinate 100 mg 12/14/24 09:00 12/14/24 08:49 Metoprolol Succinate Xl 25 Mg Tabcr PO 01/13/25 08:59 100 mg QDAY NORM Administration Ondansetron HCl 4 mg 12/12/24 18:20 Ondansetron Inj 2 Mg/Ml Inj 2 Ml IVP 01/11/25 18:19 Q6H PRN NAUSEA OR VOMITING Protocol Plan Charmaine Cintron is a 64-year-old female with a past medical history of hypertension and type 2 diabetes mellitus who is admitted for management of new onset atrial fibrillation. #New onset atrial fibrillation #Syncopal episode Presents with chest pressure with associated shortness of breath and syncopal episode. Pressure did not radiate, was not associated with activity, and no N/V. Found to be in a-fib with RVR, initial troponins negative, and BNP slightly elevated at 300 but no orthopnea, PND, or lower extremity edema. Initial vitals showed HR 146 but hemodynamically stable and no supplemental oxygen required. TSH wnl, K 3.8, magnesium pending. EKG showed a-fib with RVR with HR 119. Echo on 12/13 that showed EF 55-60%, biatrial enlargement, mild LVH, trace MR and TR but otherwise no significant abnormalities. Currently patient's [id number] score is 2 but given that she is 64 years old, she will soon have a score 3 and indicated to start anticoagulation. However, given that she remains in atrial fibrillation though rate controlled, plan cardioversion in the future which will require anticoagulation. Risks and benefits of starting medication were discussed with patient and family at length, and she was in agreement to start medication. Underwent Respite Care Provider on 12/13 that did not reveal any significant abnormalities. ? Cardiology following, appreciate recommendations ? Metoprolol succinate XL 150 mg daily ? Atorvastatin 40 mg daily ? Eliquis 5 mg twice daily ? Keep magnesium greater than 2 and K greater than 4 #Hypertension ? Home lisinopril 10 mg -> HELD ? Metoprolol succinate XL 150 mg daily #History of type 2 diabetes mellitus Currently not on any medications or insulin. Last A1c in 2019 of 7.2%. A1c on this admission 5.6%. ? SSI ? 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 Loly Baxter MD PGY-1 Internal Medicine Attending Provider Attestation/Addendum I have examined the patient, reviewed labs and imaging findings, discussed the case with the resident(s), and reviewed entered orders. I agree with the plan of care as outlined in this note, with these additional summaries/recommendations: Patient is a 64-year-old female with a medical history of acid reflux, primary hypertension, diabetes mellitus type 2, and dyslipidemia who presents to [facility] emergency department on 12/12/2024 with chief complaints of chest pain and shortness of breath. Patient seen at bedside. No acute overnight events. Patient was originally planned for discharge today although upon standing from bed she became lightheaded and went back into A-fib RVR with a rate into 130s 140s. Patient seen at bedside and endorsing lightheadedness. Order orthostatic vital signs. Cardiology following and patient transitioned to metoprolol which we will continue. We will discuss further with cardiology about rate rhythm control given that patients pulse is still labile. [id number] score is 3 points and continue Eliquis 5 mg p.o. twice daily. Unclear trigger for atrial fibrillation at this point. No significant findings on 2D echo except for mild LVH. EF 55 to 60%. Continue home lisinopril for primary hypertension. Continue insulin sliding scale for history of diabetes mellitus which is not well-controlled. Patient updated on the plan and in agreement. Continue to monitor on telemetry. Please see residents note for additional details and management. Dr. Loly MD
--- NOTE | 2024-12-14 13:56 | PD.RESPRO ---
Documentation for date of: 12/14/24 Subjective Subjective Interval history: Patient is a 64-year-old female with a past medical history of hypertension and microcytic anemia previously on iron supplements but since discontinued secondary to constipation. Patient presented to the emergency department via ambulance with a chief complaint of chest pain rapid heart rate coming from Dr Salazar's office. Patient stated that chest pain has been on and off for the past 2 weeks worsened with exertion. Describes chest pain as starting at sternal region and radiating. Denied upper jaw or hand radiation. Patient stated pain is 10 out of 10 overnight. Chest pain awoke patient out of sleep at approximately 3 AM patient described pain as aching and also heavy. Shortness of breath with chest pain/pressure. Patient denied palpitations. Patient denied nausea or vomiting. In PCPs office noted to be clammy and confused. Patient denied past medical history of cardiac surgery. Patient denied any sick contacts. Denied pyrexia. Drug use. Patient is compliant with PERRL. Patient admitted by primary team for Atrial fibrillation w/ RVR on 12/12/2024. 12/13/2024: [employer], patient A.fib w/ rvr required push of Diltiazem 20 mg IV Push. Patient remains in Afib with rvr. Patient continues to complain of chest pain, 7/10 overnight. Given concern for ACS, Aspirin add, NPO, schedule Cath. Transition patient to Metoprolol Succinate 100 mg Qday. D/C Lisinopril, continue to monitor BP if need be re-introduce. 12/14/2024: Rate controlled on Metoprolol Succinate. Patient denied chest pain or shortness of breath this morning. Prior to discharge single episode of Afib w/ rvr. Additional 50 mg of Metoprolol Succinate and starting tomorrow metroprolol 150 mg qday and titrate it to 200 mg/day if needed in split dosage of 100 mg BID. Monitor BP. Exam Vital Signs Temp Pulse Resp BP Pulse Ox O2 Del Method 97.0 F 72 18 151/89 H 100 Room Air 12/14/24 12:00 12/14/24 12:00 12/14/24 12:00 12/14/24 12:00 12/14/24 12:00 12/14/24 12:00 Narrative Exam General Appearance: Alert & Oriented X3, well-nourished female who is lying in bed in no acute distress HEENT: Skull symmetrical and atraumatic. Conjunctivae pale and moist. Pupils equal, round, reactive to light and accommodation (PERRL). External ear without lesion or discharge. Straight, nares patient, mucosa pink, no discharge. No thyroid nodule appreciated. No cervical lymphadenopathy. Cardio: Normal Rate and Irregular Rhythm with S1 and S2 heart sounds. No murmurs or extra heart sounds auscultated. No bruits on carotid auscultation. No peripheral edema or cyanosis. Lungs: Symmetric with good expansion. Chest and back non-tender. Breath sounds vesicular without crackles, wheezing or rhonchi Abdomen: Non-tender, Non-distended, Normal Reactive Bowel Sounds Neuro: Alert, cooperative, oriented to person, place, and time. Speech clear. CN grossly intact. Upper motor strength 5/5 and Lower motor strength 5/5. Sensation intact. Objective Labs 12/13/24 05:52 12/14/24 05:10 Labs: Laboratory Results - last 24 hr 12/14/24 05:10 WBC Cancelled RBC Cancelled Hgb Cancelled Hct Cancelled MCV Cancelled MCH Cancelled MCHC Cancelled RDW Std Deviation Cancelled Plt Count Cancelled Neut % (Auto) Cancelled Lymph % (Auto) Cancelled [place] % (Auto) Cancelled Eos % (Auto) Cancelled Baso % (Auto) Cancelled Neut # (Auto) Cancelled Lymph # (Auto) Cancelled [place] # (Auto) Cancelled Eos # (Auto) Cancelled Baso # (Auto) Cancelled Immature Gran # (Auto) Cancelled Absolute Nucleated RBC Cancelled Immature Gran % Cancelled Nucleated RBC % Cancelled PT 11.2 INR 1.0 APTT 24.8 Sodium 144 Potassium 4.3 D Chloride 110 H Carbon Dioxide 24.8 Anion Gap 9 BUN 17 Creatinine 0.8 Estim Creat Clear Calc 61.2 eGFR > 60 BUN/Creatinine Ratio 21 H Glucose 82 Calculated Osmolality 287 Calcium 8.3 Phosphorus 3.2 Magnesium 1.9 Quality Measures Quality Measures none Assessment & Plan Assessment Current Active Medications: Generic Name Dose Route Start Last Admin Trade Name Freq PRN Reason Stop Dose Admin Acetaminophen 650 mg 12/12/24 18:20 Acetaminophen 325 Mg Tablet PO 01/11/25 18:19 Q6H PRN PAIN 1-3 OR FEVER > 100.4 Apixaban 5 mg 12/14/24 13:45 Apixaban 2.5 Mg Tablet PO 01/13/25 13:44 BID NORM Atorvastatin Calcium 40 mg 12/13/24 21:00 12/13/24 20:37 Atorvastatin Calcium 20 Mg Tablet PO 01/12/25 20:59 40 mg HS NORM Administration Dextrose 25 ml 12/12/24 18:23 Dextrose 50%-Water Inj 50 Ml Syringe IV 01/11/25 18:22 Q15MIN PRN BG 50-70 responsive npo pt Dextrose 50 ml 12/12/24 18:23 Dextrose 50%-Water Inj 50 Ml Syringe IV 01/11/25 18:22 Q15MIN PRN BG <50 OR BG <70 & pt unresponsive Glucagon 1 mg 12/12/24 18:23 Glucagon Inj 1 Mg Vial IM Q15MIN PRN BG <70, and no IV access Insulin Human Lispro 0 unit 12/13/24 07:30 12/14/24 12:08 Insulin Lispro (Admelog) 1 Unit/0.01 Ml Unit SC 01/12/25 07:29 Not Given AC NORM Protocol Metoprolol Succinate 100 mg 12/14/24 09:00 12/14/24 08:49 Metoprolol Succinate Xl 25 Mg Tabcr PO 01/13/25 08:59 100 mg QDAY NORM Administration Ondansetron HCl 4 mg 12/12/24 18:20 Ondansetron Inj 2 Mg/Ml Inj 2 Ml IVP 01/11/25 18:19 Q6H PRN NAUSEA OR VOMITING Protocol Plan Patient is a 64-year-old female with a past medical history of hypertension and microcytic anemia who was admitted on 12/12/2024 for new onset of Atrial Fibrillation w/ rvr. Cardiology consulted for Atrial Fibrillation. #Atrial Fibrillation, RVR #new onset of Atrial Fibrillation #Chest Pain New onset of atrial fibrillation, given chronic history of anemia, microcytic anemia can not be ruled as trigger vs Given chest pain that awoke patient in the middle of the night, can not rule out ACS, repeat troponin and repeat EKG vs less likely secondary to PE as patient's vitals within normal limits. 12/14/2024: Patient continues to be in Afib and a single episode of Afib w/ rvr for couple seconds. Additional 50 mg qday of Metoprolol XL and starting tomorrow Metoprolol Succinate 150 mg qday. Echo (12/13/2024) : Normal LV size and function. Estimated EF 55-60%. Mild LVH. Normal RV size and function. Trace MR, TR. Mild biatrial dilatation. Normal IVC. No pericardial effusion. EKG: A fib, Troponin <0.02, Troponin (repeat): 0.02 TSH 1.51 BNP 299 CHADsVASC 2 HAS BLED 1 ASCVD Risk: 5.4% risk of cardiovascular event in the next 10 years; moderate intensity Plan -Metoprolol Succinate 150 mg Qday -Eliquis 5 mg BID -Aspirin 325 mg X 1, Aspirin 81 mg Qday -Atorvastatin 40 mg HS -Keep K>4 and Mg >2 -Repeat EKG not take AM, telebox Afib -Titrate Metoprolol XL to 200 mg/day if needed in split dosage of 100 mg BID. Monitor BP. #Microcytic Anemia Past medical history of anemia shortly after gastric bypass in 2000. Patient previously started on iron supplements, but discontinued given constipation side effects. Plan -consider repeat iron panel -Iron supplements w/ Senna, and Vitamin C -Encourage increase iron intake -Consider Director Of Business Continuity Consult #Hypertension Holding home medication of Lisinopril. Plan -Lisinopril on hold by primary team given normal BP #History of Diabetes Mellitus Type 2 Given past medical history of diabetes mellitus type 2, repeat A1c ordered. Denied polydyspia or polyuria. Patient has had significant weight loss secondary to gastric bypass, exercise, and briefly being on Wegovy. Diagnostic: A1c 5.6 Plan -Sliding Scale -Continue to monitor fasting glucose -consider D/C slidng scale Health Maintenance: Disp: Pt is currently admitted to floors for further management of A.fib, awaiting echo, cardiology consulted. Please follow up with cardiology, Dr. Hassan, within one week of discharge. FEN: cardiac diet DVT: Eliquis 5 mg BID Code: Full - The patient's plan was discussed with attending Dr. Sonya Vera MD PGY1 Internal Medicine Attending Provider Attestation/Addendum I have personally seen and examined the patient separately on the above date of service and discussed the plan of care with the resident. I reviewed the resident Dr. Caro Vera consultation progress note and agree with the resident findings and plan in the note above and have also edited the documentation to reflect my findings and plan. Marvin Hassan M.D. Interventional Cardiology
[2024-12-14] MEDS: APIXABAN 2.5 MG TABLET 5 MG PO ×2 (14:04→20:34)
[2024-12-14] MEDS: METOPROLOL SUCCINATE XL 25 MG TABCR 50 MG PO ×2 (14:24→18:08)
[2024-12-14] MEDS: POLYETHYLENE GLYCOL 17 GM PACKET PO (18:07)
[2024-12-14] MEDS: ACETAMINOPHEN 325 MG TABLET 650 MG PO (18:07)
[2024-12-14] MEDS: Milk Of Magnesia Susp 30 ML UDC PO (18:13)
--- NOTE | 2024-12-14 18:24 | PC.NURSE ---
coban dressing to r.wrist from cardiac cath removed.tegaderm intact,no bleeding ,no bruising
[2024-12-14] MEDS: ATORVASTATIN CALCIUM 20 MG TABLET 40 MG PO (20:34)
[2024-12-15] VITALS: BP 116/69; PULSE 106; PULSE 86; RESP 18; TEMP 36.1; O2SAT 100
[2024-12-15 00:12] LABS: Collection Type, Urine Clean Catch
[2024-12-15 02:26] LABS: Bilirubin,Urine Negative (Negative); Blood,Urine Negative (Negative); Clarity,Urine Clear (Clear/Hazy); Color,Urine Colorless (Lt Yel-Yel); Culture Indicated,Urine Not Indicated; Glucose, Urine Negative (Negative); Ketones,Urine Negative (Negative); Leukocyte Esterase,Urine Negative (Negative); Nitrite,Urine Negative (Negative); Protein,Urine Negative (Neg - Trace); RBC,Urine 1 /hpf (0-3); Specific Gravity,Urine 1.013 (1.001-1.035); Squamous Epithelial Cell,Urine 1 /hpf (0-5); Urobilinogen,Urine Negative mg/dL (0.0-1.0); WBC,Urine < 1 /hpf (0-5)
[2024-12-15 04:00] VITALS: BP 145/89; PULSE 65; PULSE 72; RESP 16; TEMP 36.1; O2SAT 100
[2024-12-15 06:00] LABS: Basophils # (Auto) 0.1 Thou/mm3 (0.0-0.2); Basophils % (Auto) 1 % (0-2.5); Eosinophils # (Auto) 0.1 Thou/mm3 (0.0-0.5); Eosinophils % (Auto) 3 % (0-10); Hematocrit 29.8 % (36.0-46.0); Hemoglobin 9.8 g/dL (12.0-16.0); Immature Granulocytes % (Auto) 0 % (0-0); Immature Granulocytes Auto 0.01 Thou/mm3 (0.00-0.00); Lymphocytes # (Auto) 1.1 Thou/mm3 (1.0-4.8); Lymphocytes % (Auto) 25 % (10-50); Mean Corpuscular HGB Conc 32.9 g/dl (31.0-37.0); Mean Corpuscular Hemoglobin 24.4 pg (25.0-35.0); Mean Corpuscular Volume 74 fL (80-100); Monocytes # (Auto) 0.4 Thou/mm3 (0.0-0.8); Monocytes % (Auto) 9 % (0-12); Neutrophils # (Auto) 2.8 Thou/mm3 (1.8-7.7); Neutrophils % (Auto) 62 % (37-80); Nucleated Red Blood Cell % 0 /100 WBC (0); Platelet Count 226 Thou/mm3 (140-440); RDW Standard Deviation 45.6 fL (36.4-46.3); Red Blood Count 4.01 Miln/mm3 (4.00-5.20); White Blood Count 4.6 Thou/mm3 (3.6-11.0)
[2024-12-15 06:02] LABS: Prothrombin Time 10.9 Seconds (9.0-12.2)
[2024-12-15 06:28] LABS: Anion Gap 10 (7-16); BUN/Creatinine Ratio 20 Ratio (12-20); Blood Urea Nitrogen 16 mg/dL (9-23); Calcium 8.7 mg/dL (8.3-10.6); Carbon Dioxide 25.3 mMol/L (20.0-31.0); Chloride 109 mMol/L (98-107); Creatinine (Component) 0.8 mg/dL (0.6-1.3); Glucose 95 mg/dL (74-106); Magnesium 2.2 mg/dL (1.6-2.6); Osmolality,Calculated 288 (275-295); Phosphorous 3.4 mg/dL (2.4-5.1); Potassium 4.4 mMol/L (3.4-5.1); Sodium 144 mMol/L (136-145); eGFR > 60 See Note
[2024-12-15 07:42] VITALS: PULSE 64; RESP 18; RESP 97
[2024-12-15 08:00] VITALS: BP 105/81; PULSE 66; RESP 18; TEMP 36.3; O2SAT 96
[2024-12-15 08:05] VITALS: BP 105/81; PULSE 66
[2024-12-15] MEDS: APIXABAN 2.5 MG TABLET 5 MG PO (08:05)
[2024-12-15] MEDS: METOPROLOL SUCCINATE XL 25 MG TABCR 150 MG PO (08:05)
--- NOTE | 2024-12-15 10:58 | ESPR_ITS ---
Documentation for date of: 12/15/24 Subjective Subjective Interval history: Patient is a 64-year-old female with a past medical history of hypertension and microcytic anemia previously on iron supplements but since discontinued secondary to constipation. Patient presented to the emergency department via ambulance with a chief complaint of chest pain rapid heart rate coming from Dr Salazar's office. Patient stated that chest pain has been on and off for the past 2 weeks worsened with exertion. Describes chest pain as starting at sternal region and radiating. Denied upper jaw or hand radiation. Patient stated pain is 10 out of 10 overnight. Chest pain awoke patient out of sleep at approximately 3 AM patient described pain as aching and also heavy. Shortness of breath with chest pain/pressure. Patient denied palpitations. Patient denied nausea or vomiting. In PCPs office noted to be clammy and confused. Patient denied past medical history of cardiac surgery. Patient denied any sick contacts. Denied pyrexia. Drug use. Patient is compliant with PERRL. Patient admitted by primary team for Atrial fibrillation w/ RVR on 12/12/2024. 12/14/2024: Rate controlled on Metoprolol Succinate. Patient denied chest pain or shortness of breath this morning. Prior to discharge single episode of Afib w/ rvr. Additional 50 mg of Metoprolol Succinate and starting tomorrow metroprolol 150 mg qday and titrate it to 200 mg/day if needed in split dosage of 100 mg BID. Monitor BP. 12/15/2024: Overnight, patient received an additional 50 mg PO X 1, total Metoprolol given on 12/14/2024--> 200 mg qday. Patient denied chest pain over night. Discharge patient on Metoprolol Succinate 100 mg BID. Please have patient follow up within one week of discharge with Dr. Hassan. Exam Vital Signs Temp Pulse Resp BP Pulse Ox O2 Del Method 97.3 F 66 18 105/81 96 Room Air 12/15/24 08:00 12/15/24 08:05 12/15/24 08:00 12/15/24 08:05 12/15/24 08:00 12/15/24 08:00 Narrative Exam General Appearance: Alert & Oriented X3, well-nourished female who is lying in bed in no acute distress HEENT: Skull symmetrical and atraumatic. Conjunctivae pale and moist. Pupils equal, round, reactive to light and accommodation (PERRL). External ear without lesion or discharge. Straight, nares patient, mucosa pink, no discharge. No thyroid nodule appreciated. No cervical lymphadenopathy. Cardio: Normal Rate and Irregular Rhythm with S1 and S2 heart sounds. No murmurs or extra heart sounds auscultated. No bruits on carotid auscultation. No peripheral edema or cyanosis. Lungs: Symmetric with good expansion. Chest and back non-tender. Breath sounds vesicular without crackles, wheezing or rhonchi Abdomen: Non-tender, Non-distended, Normal Reactive Bowel Sounds Neuro: Alert, cooperative, oriented to person, place, and time. Speech clear. CN grossly intact. Upper motor strength 5/5 and Lower motor strength 5/5. Sensation intact. Objective Labs 12/15/24 05:08 12/15/24 05:08 Labs: Laboratory Results - last 24 hr 12/15/24 12/15/24 05:08 22:00 WBC 4.6 RBC 4.01 Hgb 9.8 L Hct 29.8 L MCV 74 L MCH 24.4 L MCHC 32.9 RDW Std Deviation 45.6 Plt Count 226 Neut % (Auto) 62 Lymph % (Auto) 25 [place] % (Auto) 9 Eos % (Auto) 3 Baso % (Auto) 1 Neut # (Auto) 2.8 Lymph # (Auto) 1.1 [place] # (Auto) 0.4 Eos # (Auto) 0.1 Baso # (Auto) 0.1 Immature Gran # (Auto) 0.01 H Absolute Nucleated RBC 0.00 Immature Gran % 0 Nucleated RBC % 0 PT 10.9 INR 1.0 Sodium 144 Potassium 4.4 Chloride 109 H Carbon Dioxide 25.3 Anion Gap 10 BUN 16 Creatinine 0.8 Estim Creat Clear Calc 62.0 eGFR > 60 BUN/Creatinine Ratio 20 Glucose 95 Calculated Osmolality 288 Calcium 8.7 Phosphorus 3.4 Magnesium 2.2 Ur Collection Type Clean Catch Urine Color Colorless A Urine Clarity Clear Urine pH 6.0 Ur Specific [place] 1.013 Urine Protein Negative Urine Glucose (UA) Negative Urine Ketones Negative Urine Blood Negative Urine Nitrite Negative Urine Bilirubin Negative Urine Urobilinogen (Auto) Negative Ur Leukocyte Esterase Negative Urine RBC 1 Urine WBC < 1 Ur Squamous Epith Cells 1 Urine Bacteria None Ur Culture Indicated? Not Indicated Quality Measures Quality Measures none Assessment & Plan Assessment Current Active Medications: Generic Name Dose Route Start Last Admin Trade Name Irajq PRN Reason Stop Dose Admin Acetaminophen 650 mg 12/12/24 18:20 12/14/24 18:07 Acetaminophen 325 Mg Tablet PO 01/11/25 18:19 650 mg Q6H PRN Administration PAIN 1-3 OR FEVER > 100.4 Hydrocodone Bitart/Acetaminophen 1 tab 12/14/24 18:00 Hydrocodone/Apap 5/325 Tablet PO 12/19/24 17:59 X1 PRN PAIN SCALE 4-10(Mod-Sev Apixaban 5 mg 12/14/24 13:45 12/15/24 08:05 Apixaban 2.5 Mg Tablet PO 01/13/25 13:44 5 mg BID NORM Administration Atorvastatin Calcium 40 mg 12/13/24 21:00 12/14/24 20:34 Atorvastatin Calcium 20 Mg Tablet PO 01/12/25 20:59 40 mg HS NORM Administration Dextrose 25 ml 12/12/24 18:23 Dextrose 50%-Water Inj 50 Ml Syringe IV 01/11/25 18:22 Q15MIN PRN BG 50-70 responsive npo pt Dextrose 50 ml 12/12/24 18:23 Dextrose 50%-Water Inj 50 Ml Syringe IV 01/11/25 18:22 Q15MIN PRN BG <50 OR BG <70 & pt unresponsive Glucagon 1 mg 12/12/24 18:23 Glucagon Inj 1 Mg Vial IM Q15MIN PRN BG <70, and no IV access Insulin Human Lispro 0 unit 12/13/24 07:30 12/15/24 07:20 Insulin Lispro (Admelog) 1 Unit/0.01 Ml Unit SC 01/12/25 07:29 Not Given AC NORM Protocol Metoprolol Succinate 150 mg 12/15/24 09:00 12/15/24 08:05 Metoprolol Succinate Xl 25 Mg Tabcr PO 01/14/25 08:59 150 mg QDAY NORM Administration Ondansetron HCl 4 mg 12/12/24 18:20 Ondansetron Inj 2 Mg/Ml Inj 2 Ml IVP 01/11/25 18:19 Q6H PRN NAUSEA OR VOMITING Protocol Plan Patient is a 64-year-old female with a past medical history of hypertension and microcytic anemia who was admitted on 12/12/2024 for new onset of Atrial Fibrillation w/ rvr. Cardiology consulted for Atrial Fibrillation. #New onset of Atrial Fibrillation #Atrial Fibrillation, RVR, resolved #Chest Pain, resolved. New onset of atrial fibrillation, given chronic history of anemia, microcytic anemia can not be ruled as trigger vs Given chest pain that awoke patient in the middle of the night, can not rule out ACS, repeat troponin and repeat EKG vs less likely secondary to PE as patient's vitals within normal limits. 12/14/2024: Patient continues to be in Afib and a single episode of Afib w/ rvr for couple seconds. Additional 50 mg qday of Metoprolol XL and starting tomorrow Metoprolol Succinate 150 mg qday. Echo (12/13/2024) : Normal LV size and function. Estimated EF 55-60%. Mild LVH. Normal RV size and function. Trace MR, TR. Mild biatrial dilatation. Normal IVC. No pericardial effusion. EKG: A fib, Troponin <0.02, Troponin (repeat): 0.02 TSH 1.51 BNP 299 CHADsVASC 2 HAS BLED 1 ASCVD Risk: 5.4% risk of cardiovascular event in the next 10 years; moderate intensity Plan -Metoprolol Succinate 100 mg BID on discharge. Monitor BP -Eliquis 5 mg BID -Aspirin 81 mg qday (november d/c on discharge) -Atorvastatin 40 mg HS -Keep K>4 and Mg >2 #Microcytic Anemia Past medical history of anemia shortly after gastric bypass in 2000. Patient previously started on iron supplements, but discontinued given constipation side effects. Plan -consider repeat iron panel -Iron supplements w/ Senna, and Vitamin C -Encourage increase iron intake -Consider Workers Compensation Claims Supervisor Consult #Hypertension Holding home medication of Lisinopril. Plan -Lisinopril on hold by primary team given normal BP #History of Diabetes Mellitus Type 2 Given past medical history of diabetes mellitus type 2, repeat A1c ordered. Denied polydyspia or polyuria. Patient has had significant weight loss secondary to gastric bypass, exercise, and briefly being on Wegovy. Diagnostic: A1c 5.6 Plan -Sliding Scale -Continue to monitor fasting glucose -consider D/C slidng scale Health Maintenance: Disp: Pt is currently admitted to floors for further management of A.fib, awaiting echo, cardiology consulted. Please follow up with cardiology, Dr. Hassan, within one week of discharge. FEN: cardiac diet DVT: Eliquis 5 mg BID Code: Full - The patient's plan was discussed with attending Dr. Sonya Vera MD PGY1 Attending Provider Attestation/Addendum I have personally seen and examined the patient separately on the above date of service and discussed the plan of care with the resident. I reviewed the resident Dr. Caro Vera consultation progress note and agree with the resident findings and plan in the note above and have also edited the documentation to reflect my findings and plan. Marvin Hassan M.D. Interventional Cardiology
--- NOTE | 2024-12-15 11:51 | ESDS_ITS ---
Planned Discharge Date 12/15/24 DS: Providers Provider Date of admission: 12/12/24 18:20 Primary care physician: Nehemias Salazar MD Admitting Provider: Genaro Salcido MD Attending Provider on Admission: Genaro Salcido MD Consults: 12/12/24 18:24 Consult to Cardiology Routine Comment: New onset a-fib Consulting Provider: Marvin Hassan Attending Provider on DC: Lonnie Baxter MD Discharging Provider: Lonnie Baxter MD DS: Diagnosis Problem List Completed Was Problem List Reviewed/Reconciled?: Yes Hospital Course Hospital Course Hospital course: Charmaine Cintron is a 64-year-old female with a past medical history of hypertension and type 2 diabetes mellitus (A1c 7.2% in 2019) who presents with chief complaint of chest pressure. Patient states that symptoms started approximately one week ago as substernal chest pressure that would resolve on their own and did not think anything of it until symptoms progressed. States that symptoms would start suddenly with associated shortness of breath, pressure in her head and blurry vision. Symptoms not associated with activity, did not radiate, and no nausea or vomiting. On morning of admission, pain was more intense than prior and states that she had to lie down in bed and afterwards she states she lost consciousness twice prompting her to visit a clinic for which she was then recommended to come to the ED. Prior to this, she has never had these symptoms before but did endorse a sore throat two weeks before admission but no cough, fever, or chills. Regarding family history, states that she has two sisters who were recently diagnosed with atrial fibrillation and father had an KS in his 70s and has since . Denies orthopnea, PND, or lower extremity edema. In the ED, initial HR noted to be 146 and EKG showed a-fib with RVR, with HR of [address] changes or T wave abnormalities noted. Other vital signs stable. CBC unremarkable other than previously noted microcytic anemia (hgb 10.7, MCV 76). Chem panel also largely unremarkable (K 3.8, trop negative, BNP 300). EKG was noted above and CXR unremarkable. She was given enoxaparin x1 and diltiazem 20 mg x1 as well and heart rate upon evaluation was in the 80s. Patient was initially started on diltiazem 120 mg p.o. daily and started on enoxaparin 1 mg/kg body weight BID with plan to eventually transition to Eliq uis, echo ordered, and cardiology consulted. Cardiology switch diltiazem to metoprolol XL 50 mg daily that was eventually uptitrated to 100 mg twice daily upon discharge and Eliquis eventually started given that [id number] score was 2 but patient will be 66 to make score of 3 within 2 years. Discussed risk and benefits of starting Eliquis with patient and she was in agreement to start taking. Throughout hospitalization heart rate generally remained stable but still irregular as seen on telemetry with some episodes of tachycardia into the low 100s to 110s for which metoprolol was uptitrated to dosage as mentioned previously. Given that patient presented with signs and symptoms concerning of cardiac chest pain, she underwent cardiac cath with no abnormality seen. Echo obtained and showed EF 55 to 60%, mild LVH, mild biatrial dilatation, but otherwise unremarkable. Otherwise, no acute events occurred and labs unremarkable. Thus, patient was deemed stable for discharge with close follow- up with cardiology within 1 week. Diagnoses during admission: #New onset atrial fibrillation #Syncopal episode #Hypertension #Type 2 diabetes mellitus Discharge instructions: ? You've been started on: ? Eliquis 5 mg twice per day ? Atorvastatin 40 mg daily ? Metoprolol succinate 100 mg twice daily ? Follow-up with exit booth agent, Dr. Hassan, within 1-2 weeks of discharge ? Recommended not to lift more than 5 lbs for the next 7-10 days and follow up with Dr. Hassan in 7 days ? Stop taking lisinopril and ibuprofen, at least until you follow-up with your PCP ? Follow-up with PCP within 1-2 weeks of discharge ? If you do not have a PCP, you can follow-up at the [facility] (you can call [phone] to make an appointment) ? If you wish to follow-up with Dr. Baxter, schedule appointment on Wednesday afternoons ? Return to ED if symptoms worsen or recur ----- Plan discussed with attending physician Dr. Loly Baxter MD PGY-1 Internal Medicine Time Spent with Patient Time attestation: Total time spent providing and/or coordinating discharge services: Time spent: Greater than 30 minutes Exam Vital Signs Temp Pulse Resp BP Pulse Ox O2 Del Method 97.3 F 66 18 105/81 96 Room Air 12/15/24 08:00 12/15/24 08:05 12/15/24 08:00 12/15/24 08:05 12/15/24 08:00 12/15/24 08:00 Narrative Exam General: AOx3, no acute distress, able to speak full sentences HEENT: NC/AT, mucous membranes moist, bilateral sclera anicteric Cardiovascular: irregular rate, regular rhythm, S1/S2 present, no murmurs appreciated Pulmonary: clear to auscultation bilaterally, no rales/rhonchi/wheezes Abdominal: soft, non-tender, non-distended, no rebound/guarding, normal bowel sounds present Musculoskeletal: normal ROM, no peripheral edema Skin: warm and dry, intact, no rashes Neuro: CN II-XII intact, no focal deficits Discharge Plan Plan Patient Disposition: HOME (Self Care) Care Plan Goals: ? You've been started on: ? Eliquis 5 mg twice per day ? Atorvastatin 40 mg daily ? Metoprolol succinate 100 mg twice daily ? Follow-up with exit booth agent, Dr. Hassan, within 1-2 weeks of discharge ? Recommended not to lift more than 5 lbs for the next 7-10 days and follow up with Dr. Hassan in 7 days ? Stop taking lisinopril and ibuprofen, at least until you follow-up with your PCP ? Follow-up with PCP within 1-2 weeks of discharge ? If you do not have a PCP, you can follow-up at the [facility] (you can call [phone] to make an appointment) ? If you wish to follow-up with Dr. Baxter, schedule appointment on Wednesday afternoons ? Return to ED if symptoms worsen or recur Prescriptions/Referrals Prescriptions/Med Rec: New Eliquis 5 mg tablet 5 mg PO BID 30 Days Qty: 60 0RF atorvastatin 40 mg tablet 40 mg PO HS 30 Days Qty: 30 0RF metoprolol succinate 100 mg tablet extended release 24 hr 100 mg PO BID 30 Days Qty: 60 0RF Discontinued lisinopril 10 mg tablet 10 mg PO DAILY ibuprofen 200 mg capsule 400 mg PO Q4H PRN (Reason: pain) Referrals: Nehemias Salazar MD [Primary Care Provider] - Patient/Caregiver Discharge Instructions Discharge Activity: activity as tolerated Education Materials: AFL/Afib Print Language: Kyrgyz Stand Alone Forms: [employer] Award Info., Patient Portal Info Letter Discharge Order Discharge Orders: Discharge (Routine); Ordered 12/15/24 Ordered By: Lonnie Baxter Quality Discharge Quality Measures VTE prophylaxis MD Attestestation MD Attestation I have examined the patient, reviewed labs and imaging findings, discussed the case with the resident(s), and reviewed entered orders. I agree with the plan of care as outlined in this note. Time Spent: [address] Loly MD
--- NOTE | 2024-12-15 14:00 | CHAP ---
Addendum entered by Stew Dumont 12/18/24 10:03: Apparently this patient had already been discharged and another patient was in the room. I saw this in the note left by the Spiritual Care Volunteer. Original Note: Patient visited by he Spiritual Care Volunteer who prayed for them. (Volunteer in hospital from 13:00-c14:30)
== END 2024-12-15 11:20 | disposition home or self-care (01) | DRG 287 ==
LOC: SERX 18:01 → SERHOLD 18:43 → S2NX 20:31 → S3SX 12-14 22:19
PROVIDERS: Internal Medicine Cardiovascular Disease; Admitting Provider Student in an Organized Health Care Education/Training Program; Emergency Provider Family Medicine; PCP Family Medicine; Visit Provider Student in an Organized Health Care Education/Training Program
DX: I48.91 Unspecified atrial fibrillation (principal); I20.0 Unstable angina; I10 Essential (primary) hypertension; E11.9 Type 2 diabetes mellitus without complications; R55 Syncope and collapse; K59.00 Constipation, unspecified; E66.9 Obesity, unspecified; D50.9 Iron deficiency anemia, unspecified; Z98.84 Bariatric surgery status; E78.5 Hyperlipidemia, unspecified; Z79.01 Long term (current) use of anticoagulants; Z79.4 Long term (current) use of insulin; Z79.82 Long term (current) use of aspirin; Z79.899 Other long term (current) drug therapy
CPT/HCPCS: 36415; 71045; 80048; 80053; 80061; 81001; 83036; 83735; 83880; 84100; 84443; 84484; 85025; 85610; 85730; 93005; 93306; 99152; 99153; 99291; A4649; C1769; C1887; C1894; J0153; J0171; J0282; J0461; J1643; J1650; J2250; J2270; J2310; J2371; J3010; J3475; J3490; J7030; Q9967; A9270; J2305

== ENCOUNTER → 2025-02-21 | Outpatient (CLI) | payer BC, SELFPAY ==
[2025-02-21 13:31] LABS: Basophils # (Auto) 0.1 Thou/mm3 (0.0-0.2); Basophils % (Auto) 1 % (0-2.5); Eosinophils # (Auto) 0.2 Thou/mm3 (0.0-0.5); Eosinophils % (Auto) 5 % (0-10); Hematocrit 32.3 % (36.0-46.0); Hemoglobin 10.2 g/dL (12.0-16.0); Immature Granulocytes Auto 0.01 Thou/mm3 (0.00-0.00); Immature Reticulocyte Fraction 14.9 % (3.0-15.9); Lymphocytes # (Auto) 0.9 Thou/mm3 (1.0-4.8); Lymphocytes % (Auto) 23 % (10-50); Mean Corpuscular HGB Conc 31.6 g/dl (31.0-37.0); Mean Corpuscular Hemoglobin 25.3 pg (25.0-35.0); Mean Corpuscular Volume 80 fL (80-100); Monocytes # (Auto) 0.4 Thou/mm3 (0.0-0.8); Monocytes % (Auto) 10 % (0-12); Neutrophils # (Auto) 2.3 Thou/mm3 (1.8-7.7); Neutrophils % (Auto) 61 % (37-80); Nucleated Red Blood Cell # 0.00 Thou/mm3 (0.00-0.00); Nucleated Red Blood Cell % 0 /100 WBC (0); Platelet Count 215 Thou/mm3 (140-440); RDW Standard Deviation 50.8 fL (36.4-46.3); Red Blood Count 4.03 Miln/mm3 (4.00-5.20); Reticulocyte % (Auto) 0.7 % (0.5-1.5); Reticulocyte Absolute Auto 27.8 Biln/L (25.0-75.0); Reticulocyte Hgb Content 26.2 pg (28.0-35.0); White Blood Count 3.8 Thou/mm3 (3.6-11.0)
[2025-02-21 13:58] LABS: Alanine Aminotransferase 102 U/L (10-49); Albumin, Serum 4.4 gm/dL (3.4-4.8); Albumin/Globulin Ratio 1.6 (1.2-2.2); Alkaline Phosphatase 110 U/L (46-116); Anion Gap 7 (7-16); Aspartate Amino Transferase 59 U/L (0-34); BUN/Creatinine Ratio 17 Ratio (12-20); Bilirubin,Total 0.4 mg/dL (0.3-1.2); Blood Urea Nitrogen 15 mg/dL (9-23); Calcium 10.3 mg/dL (8.3-10.6); Calcium (Corrected) 10.3 mg/dL (8.5-10.1); Carbon Dioxide 27.7 mMol/L (20.0-31.0); Cardiac Risk Estimate 2.4 RATIO (3.7-5.6); Chloride 107 mMol/L (98-107); Cholesterol 143 mg/dL (132-200); Creatinine (Component) 0.9 mg/dL (0.6-1.3); Globulin 2.8 gm/dL (2.3-3.5); Glucose 92 mg/dL (74-106); HDL Cholesterol 60 mg/dL (40-60); LDL Cholesterol,Calculated 63 mg/dL (0-130); Osmolality,Calculated 283 (275-295); Potassium 5.2 mMol/L (3.4-5.1); Sodium 142 mMol/L (136-145); Total Protein 7.2 gm/dL (5.7-8.2); Triglycerides 101 mg/dL (30-150); eGFR > 60 See Note
[2025-02-21 14:05] LABS: Folate 23.93 ng/mL (>5.38); Vitamin B12 309 pg/mL (211-911)
[2025-02-21 14:06] LABS: Ferritin 6 ng/mL (7.3-270.7); Iron 31 mcg/dL (50-170); Percent Iron Saturation 7 % (20-55); Total Iron Binding Capacity 432 mcg/dL (250-425); Unsaturated Iron Binding 401 (225-295)
== END | disposition home or self-care (01) ==
LOC: COPL 11:39
PROVIDERS: PCP Family Medicine; Referring Provider Internal Medicine Cardiovascular Disease; Visit Provider Internal Medicine Cardiovascular Disease
DX: I48.91 Unspecified atrial fibrillation (principal); D50.9 Iron deficiency anemia, unspecified
CPT/HCPCS: 36415; 80053; 80061; 82607; 82728; 82746; 83540; 83550; 85025; 85046

== ENCOUNTER 2025-05-04 09:38 | Day surgery (SDC) | payer BC, SELFPAY ==
[2025-05-02 13:24] VITALS: BMI 29.0
--- NOTE | 2025-05-03 07:00 | EKG_ITS ---
[facility] Test Date: 2025-05-03 Pat Name: BRITTANI SMALLS Department: Room: - Gender: Female Skid [employer] Worker: [place] : 1960 Requested By: Marvin Hassan Order Number: [id number] Reading MD: Marvin Hassan Measurements Intervals [place] Rate: 57 P: 22 TX: 172 QRS: 18 QRSD: 76 T: 68 QT: 387 QTc: 378 Interpretive Statements SINUS BRADYCARDIA Compared to ECG 12/13/2024 23:15:34 Atrial fibrillation no longer present /store/S0/[id number]
[2025-05-03 10:10] LABS: Basophils # (Auto) 0.1 Thou/mm3 (0.0-0.2); Basophils % (Auto) 1 % (0-2.5); Eosinophils # (Auto) 0.1 Thou/mm3 (0.0-0.5); Eosinophils % (Auto) 2 % (0-10); Hematocrit 31.3 % (36.0-46.0); Hemoglobin 9.6 g/dL (12.0-16.0); Immature Granulocytes Auto 0.01 Thou/mm3 (0.00-0.00); Lymphocytes # (Auto) 0.7 Thou/mm3 (1.0-4.8); Lymphocytes % (Auto) 14 % (10-50); Mean Corpuscular HGB Conc 30.7 g/dl (31.0-37.0); Mean Corpuscular Hemoglobin 24.2 pg (25.0-35.0); Mean Corpuscular Volume 79 fL (80-100); Monocytes # (Auto) 0.5 Thou/mm3 (0.0-0.8); Monocytes % (Auto) 10 % (0-12); Neutrophils # (Auto) 3.8 Thou/mm3 (1.8-7.7); Neutrophils % (Auto) 72 % (37-80); Nucleated Red Blood Cell # 0.00 Thou/mm3 (0.00-0.00); Nucleated Red Blood Cell % 0 /100 WBC (0); Platelet Count 252 Thou/mm3 (140-440); RDW Standard Deviation 44.7 fL (36.4-46.3); Red Blood Count 3.97 Miln/mm3 (4.00-5.20); White Blood Count 5.3 Thou/mm3 (3.6-11.0)
[2025-05-03 10:19] LABS: Anion Gap 9 (7-16); BUN/Creatinine Ratio 12 Ratio (12-20); Blood Urea Nitrogen 11 mg/dL (9-23); Calcium 9.4 mg/dL (8.3-10.6); Carbon Dioxide 26.2 mMol/L (20.0-31.0); Chloride 108 mMol/L (98-107); Creatinine (Component) 0.9 mg/dL (0.6-1.3); Estimated Creatinine Clearance 54.9 mL/min (>60); Glucose 82 mg/dL (74-106); INR 1.0 (0.9-1.3); Osmolality,Calculated 283 (275-295); Partial Thromboplastin Time 23.7 Seconds (22.0-36.0); Potassium 4.4 mMol/L (3.4-5.1); Prothrombin Time 10.6 Seconds (9.0-12.2); Sodium 143 mMol/L (136-145); eGFR > 60 See Note
[2025-05-04 09:45] VITALS: BMI 29.7
[2025-05-04 09:50] VITALS: BP 161/78; PULSE 65; RESP 18; TEMP 36.9; O2SAT 100
--- NOTE | 2025-05-04 10:03 | EKG_ITS ---
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
--- NOTE | 2025-05-04 11:21 | PC.NURSE ---
procedure cancelled due to patient self-converted to sr. EKG performed and interpreted by dr. barros. per fiorella order cancel procedure.
== END 2025-05-04 11:20 | disposition home or self-care (01) ==
LOC: SCCL 09:38
PROVIDERS: PCP Family Medicine; Referring Provider Internal Medicine Cardiovascular Disease; Visit Provider Internal Medicine Cardiovascular Disease
PROC: (CPT 93312; principal; 2025-05-04 11:30)
PROC: 5A2204Z Restoration of Cardiac Rhythm, Single (ICD-10-PCS; 2025-05-04 11:30)
DX: I48.0 Paroxysmal atrial fibrillation (principal); I10 Essential (primary) hypertension; D50.9 Iron deficiency anemia, unspecified; Z98.890 Other specified postprocedural states; Z86.39 Personal history of other endocrine, nutritional and metabolic disease; Z01.810 Encounter for preprocedural cardiovascular examination; Z79.01 Long term (current) use of anticoagulants; Z79.899 Other long term (current) drug therapy; Z53.8 Procedure and treatment not carried out for other reasons
CPT/HCPCS: 36415; 80048; 85025; 85610; 85730; 93005; 93312

== ENCOUNTER → 2025-06-07 | Outpatient (CLI) | payer BC, SELFPAY ==
[2025-06-07 11:05] LABS: Basophils # (Auto) 0.1 Thou/mm3 (0.0-0.2); Basophils % (Auto) 1 % (0-2.5); Eosinophils # (Auto) 0.1 Thou/mm3 (0.0-0.5); Eosinophils % (Auto) 2 % (0-10); Hematocrit 30.6 % (36.0-46.0); Hemoglobin 9.4 g/dL (12.0-16.0); Immature Granulocytes Auto 0.01 Thou/mm3 (0.00-0.00); Lymphocytes # (Auto) 0.7 Thou/mm3 (1.0-4.8); Lymphocytes % (Auto) 14 % (10-50); Mean Corpuscular HGB Conc 30.7 g/dl (31.0-37.0); Mean Corpuscular Hemoglobin 24.1 pg (25.0-35.0); Mean Corpuscular Volume 79 fL (80-100); Monocytes # (Auto) 0.3 Thou/mm3 (0.0-0.8); Monocytes % (Auto) 7 % (0-12); Neutrophils # (Auto) 3.5 Thou/mm3 (1.8-7.7); Neutrophils % (Auto) 75 % (37-80); Nucleated Red Blood Cell # 0.00 Thou/mm3 (0.00-0.00); Nucleated Red Blood Cell % 0 /100 WBC (0); Platelet Count 288 Thou/mm3 (140-440); RDW Standard Deviation 43.4 fL (36.4-46.3); Red Blood Count 3.90 Miln/mm3 (4.00-5.20); White Blood Count 4.7 Thou/mm3 (3.6-11.0)
[2025-06-07 11:18] LABS: Glucose Estimated Average 134 mg/dL (80-131); Hemoglobin A1C 6.3 % Hgb (4.8-6.0)
[2025-06-07 11:30] LABS: Alanine Aminotransferase 39 U/L (10-49); Albumin, Serum 4.7 gm/dL (3.4-4.8); Albumin/Globulin Ratio 1.5 (1.2-2.2); Alkaline Phosphatase 107 U/L (46-116); Anion Gap 9 (7-16); Aspartate Amino Transferase 34 U/L (0-34); BUN/Creatinine Ratio 17 Ratio (12-20); Bilirubin,Total 0.6 mg/dL (0.3-1.2); Blood Urea Nitrogen 15 mg/dL (9-23); Calcium 9.1 mg/dL (8.3-10.6); Calcium (Corrected) 9.1 mg/dL (8.5-10.1); Carbon Dioxide 24.1 mMol/L (20.0-31.0); Cardiac Risk Estimate 2.7 RATIO (3.7-5.6); Chloride 110 mMol/L (98-107); Cholesterol 186 mg/dL (132-200); Creatinine (Component) 0.9 mg/dL (0.6-1.3); Free T4 (Free Thyroxine) 1.24 ng/dL (0.89-1.76); Globulin 3.2 gm/dL (2.3-3.5); Glucose 107 mg/dL (74-106); HDL Cholesterol 69 mg/dL (40-60); LDL Cholesterol,Calculated 99 mg/dL (0-130); Osmolality,Calculated 285 (275-295); Potassium 4.1 mMol/L (3.4-5.1); Sodium 143 mMol/L (136-145); Thyroid Stimulating Hormone 2.03 uIU/mL (0.55-4.78); Total Protein 7.9 gm/dL (5.7-8.2); Triglycerides 92 mg/dL (30-150); eGFR > 60 See Note
== END | disposition home or self-care (01) ==
LOC: COPL 10:00
PROVIDERS: PCP Family Medicine; Referring Provider Family Medicine; Visit Provider Family Medicine
DX: D50.9 Iron deficiency anemia, unspecified (principal); E78.2 Mixed hyperlipidemia; R73.03 Prediabetes; I48.91 Unspecified atrial fibrillation
CPT/HCPCS: 36415; 80053; 80061; 83036; 84439; 84443; 85025